=== PATIENT | female | born 1990 | race Caucasian/White ===

== ENCOUNTER 2017-12-17 14:58 | Outpatient (CLI) | payer MEDICAID ==
[~2017-12-17] VITALS: Ht 160 cm; Wt 85.3 kg
[2017-12-17 15:00] VITALS: BP 102/56
[2017-12-17] MEDS ORDERED: PREN1TAB86 PO (15:11)
[2017-12-17] MEDS ORDERED: CALC500T3 PO (15:14)
[2017-12-17] MEDS ORDERED: D5 LR IV SOLUTION 1,000 ML IV ONE ×2 (15:29→15:30)
[2017-12-17 15:38] VITALS: BP 104/56
[2017-12-17 16:25] LABS: BASOPHILS % (AUTO) 0 % (0-10); EOSINOPHILS # (AUTO) 0.2 10^3/uL (0.0-0.3); EOSINOPHILS % (AUTO) 2 % (0-10); HEMATOCRIT 33 % (35-52); HEMOGLOBIN 11.2 G/DL (11.5-16.0); LYMPHOCYTES # (AUTO) 2.4 X 10^3 (1.0-4.0); LYMPHOCYTES % (AUTO) 25 % (12-44); MEAN CORPUSCULAR HEMOGLOBIN 30 PG (25-34); MEAN CORPUSCULAR HGB CONC 34 G/DL (32-36); MEAN CORPUSCULAR VOLUME 88 FL (80-99); MONOCYTES # (AUTO) 0.7 X 10^3 (0.0-1.0); MONOCYTES % (AUTO) 7 % (0-12); NEUTROPHILS # (AUTO) 6.5 X 10^3 (1.8-7.8); NEUTROPHILS % (AUTO) 66 % (42-75); PLATELET COUNT 352 10^3/uL (130-400); RED BLOOD COUNT 3.72 10^6/uL (4.35-5.85); RED CELL DISTRIBUTION WIDTH 14.6 % (10.0-14.5); WHITE BLOOD COUNT 9.7 10^3/uL (4.3-11.0)
[2017-12-17 16:45] LABS: ALANINE AMINOTRANSFERASE 13 U/L (0-55); ALBUMIN 3.5 GM/DL (3.2-4.5); ALKALINE PHOSPHATASE 74 U/L (40-136); BILIRUBIN,TOTAL 0.2 MG/DL (0.1-1.0); BUN/CREATININE RATIO 12; CALCIUM 9.2 MG/DL (8.5-10.1); CARBON DIOXIDE 27 MMOL/L (21-32); CHLORIDE 106 MMOL/L (98-107); CREATININE SERUM 0.51 MG/DL (0.60-1.30); GFR ESTIMATED > 60; GLUCOSE 77 MG/DL (70-105); POTASSIUM 3.6 MMOL/L (3.6-5.0); SODIUM 137 MMOL/L (135-145); TOTAL PROTEIN 6.3 GM/DL (6.4-8.2)
[2017-12-17] MEDS ORDERED: CITRIC ACID/SOB CIT (BICITRA) 30 ML UDC PO ONE (17:15)
[2017-12-17 17:25] VITALS: BP 104/56
--- NOTE | 2017-12-18 12:24 | Physician Query-Final Dx ---
ELISE LOPEZ 12/18/17 1224: Clinic Account Progress/Dx Physician Query: Please give diagnosis Date of Service Dec 17, 2017 at 14:58 TRINIDAD WRIGHT MD 12/19/17 0712: Clinic Account Progress/Dx DIAGNOSIS: Diagnosis Hyperemesis ELISE LOPEZ Dec 18, 2017 12:24 TRINIDAD WRIGHT MD Dec 19, 2017 07:12
== END 2017-12-17 17:25 | disposition home or self-care (01) ==
LOC: WSo 14:58 → LDRP 14:59 → WSo 17:25
PROVIDERS: ATTEND Obstetrics & Gynecology
DX: O21.2 Late vomiting of pregnancy (principal); Z3A.26 26 weeks gestation of pregnancy
CPT/HCPCS: 36415; 80053; 85025; 96360; 99213

== ENCOUNTER 2018-01-15 10:56 | Outpatient (CLI) | payer MEDICAID ==
[~2018-01-15] VITALS: Ht 160 cm; Wt 84.8 kg
[~2018-01-15 10:56] MED LIST: CALC500T3 PO; PREN1TAB86 PO
[2018-01-15 11:02] VITALS: BP 102/50
[2018-01-15] MEDS ORDERED: D5 LR IV SOLUTION 1,000 ML IV ONE (11:24)
[2018-01-15] MEDS ORDERED: LOPERAMIDE 2 MG (IMODIUM) CAP PO PRN (11:30)
[2018-01-15] MEDS ORDERED: ONDANSETRON 4 MG/2 ML (SDV) Z0FRAN IVP ONE (11:30)
[2018-01-15 11:32] LABS: BILIRUBIN,URINE NEGATIVE (NEGATIVE); CLARITY,URINE CLEAR; COLOR,URINE YELLOW; GLUCOSE, URINE (UA) NEGATIVE (NEGATIVE); KETONES,URINE NEGATIVE (NEGATIVE); LEUKOCYTE ESTERASE ,URINE 1+ (NEGATIVE); NITRITE,URINE NEGATIVE (NEGATIVE); PH,URINE 6 (5-9); PROTEIN,URINE 1+ (NEGATIVE); UROBILINOGEN,URINE NORMAL (NORMAL)
[2018-01-15 11:38] LABS: BACTERIA,URINE TRACE /HPF
[2018-01-15] MEDS: D5 LR IV SOLUTION 1,000 ML IV SCH ×2 (11:41→13:40)
[2018-01-15 12:01] LABS: BASOPHILS % (AUTO) 0 % (0-10); EOSINOPHILS # (AUTO) 0.2 10^3/uL (0.0-0.3); EOSINOPHILS % (AUTO) 2 % (0-10); HEMATOCRIT 32 % (35-52); HEMOGLOBIN 10.8 G/DL (11.5-16.0); LYMPHOCYTES % (AUTO) 19 % (12-44); MEAN CORPUSCULAR HEMOGLOBIN 30 PG (25-34); MEAN CORPUSCULAR HGB CONC 34 G/DL (32-36); MEAN CORPUSCULAR VOLUME 88 FL (80-99); MEAN PLATELET VOLUME 9.2 FL (7.4-10.4); MONOCYTES # (AUTO) 0.6 X 10^3 (0.0-1.0); MONOCYTES % (AUTO) 6 % (0-12); NEUTROPHILS # (AUTO) 7.5 X 10^3 (1.8-7.8); NEUTROPHILS % (AUTO) 73 % (42-75); PLATELET COUNT 312 10^3/uL (130-400); RED BLOOD COUNT 3.65 10^6/uL (4.35-5.85); RED CELL DISTRIBUTION WIDTH 13.9 % (10.0-14.5); WHITE BLOOD COUNT 10.3 10^3/uL (4.3-11.0)
[2018-01-15 12:16] LABS: ALANINE AMINOTRANSFERASE 8 U/L (0-55); ALBUMIN 3.3 GM/DL (3.2-4.5); ALKALINE PHOSPHATASE 93 U/L (40-136); BILIRUBIN,TOTAL 0.3 MG/DL (0.1-1.0); BUN/CREATININE RATIO 15; CALCIUM 8.6 MG/DL (8.5-10.1); CARBON DIOXIDE 21 MMOL/L (21-32); CHLORIDE 107 MMOL/L (98-107); CREATININE SERUM 0.52 MG/DL (0.60-1.30); GFR ESTIMATED > 60; GLUCOSE 93 MG/DL (70-105); POTASSIUM 3.8 MMOL/L (3.6-5.0); SODIUM 137 MMOL/L (135-145); TOTAL PROTEIN 5.9 GM/DL (6.4-8.2)
[2018-01-15] MEDS ORDERED: FAMO10TA43 PO (12:51)
[2018-01-15 15:15] VITALS: BP 102/50
--- NOTE | 2018-01-16 11:36 | Physician Query-Final Dx ---
ELISE LOPEZ 01/16/18 1136: Clinic Account Progress/Dx Physician Query: Please give diagnosis Date of Service January 15, 2018 at 10:56 TRINIDAD WRIGHT MD 01/20/18 1314: Clinic Account Progress/Dx DIAGNOSIS: Diagnosis false labor ELISE LOPEZ January 16, 2018 11:36 TRINIDAD WRIGHT MD January 20, 2018 13:14
== END 2018-01-15 15:15 | disposition home or self-care (01) ==
LOC: WSo 10:56 → LDRP 10:57 → WSo 15:15
PROVIDERS: ATTEND Obstetrics & Gynecology
DX: O47.03 False labor before 37 completed weeks of gestation, third trimester (principal); Z3A.30 30 weeks gestation of pregnancy
CPT/HCPCS: 36415; 80053; 81000; 82570; 84156; 85025; 87088; 96361; 96374; 99214

== ENCOUNTER 2019-08-25 21:54 | Emergency (ER) | payer SELFPAY ==
[~2019-08-25] VITALS: Ht 157.4 cm; Wt 70.4 kg
[~2019-08-25 21:54] MED LIST changes: -CALC500T3 PO; +CALC500T64 PO; +DOCU-143 PO; +FAMO10TA43 PO; +IBUP-1780 PO; +OXYC1TAB87 PO
[2019-08-26 00:03] LABS: BILIRUBIN,URINE NEGATIVE (NEGATIVE); CLARITY,URINE CLEAR; COLOR,URINE YELLOW; GLUCOSE, URINE (UA) NEGATIVE (NEGATIVE); KETONES,URINE NEGATIVE (NEGATIVE); LEUKOCYTE ESTERASE ,URINE NEGATIVE (NEGATIVE); NITRITE,URINE NEGATIVE (NEGATIVE); PH,URINE 5.5 (5-9); PROTEIN,URINE NEGATIVE (NEGATIVE)
[2019-08-26 00:10] LABS: BACTERIA,URINE TRACE /HPF; RBC,URINE 25-50 /HPF; WBC,URINE RARE /HPF
[2019-08-26] MEDS ORDERED: NS IV 1000 ML 1,000 ML IV ONE (00:34)
--- NOTE | 2019-08-26 00:56 | ED Abdominal Pain ---
General Chief Complaint: Abdominal/GI Problems Stated Complaint: ABD PAIN Nursing Triage Note: PT AMB TO TRIAGE WITH COMPLAINT OF UPPER ABD CRAMPS FOR 3 DAYS. STATES PAIN IS RADIATING TOWARDS HER LEFT SHOULDER. PT STATES SHE FEELS SHE COULD PASS OUT Sepsis Screen: No Definite Risk Source of Information: Patient Exam Limitations: No Limitations (JOSE RAUL TERAN MED STUDENT) History of Present Illness Date Seen by Provider: Aug 26, 2019 Time Seen by Provider: 00:37 Initial Comments Pt complains of three days of epigastric abdominal pain that is crampy 7/10 baseline and burning 10/10 intermittently. She has never experienced this pain before, it does not radiate, and she associates it with nausea, a few episodes of diarrhea, chills and weakness. She has tried tylenol, ibuprofen and prilosec with no improvement of symptoms. She had a burger for dinner and thinks it made her pain worse. She has previously been taking prilosec for heartburn with good relief. Timing/Duration: 3-4 Days Severity/Quality: Severe, Burning, Cramping Location: Epigastric Radiation: No Radiation Activities at Onset: None Modifying Factors: Worsens With Eating, Worsens With Movement, Worsens With Palpation Associated Symptoms: No Back Pain, No Chest Pain; Diaphoresis, Fever/Chills, Fatigue; No Headache; Nausea/Vomiting; No Rash (JOSE RAUL TERAN,MED STUDENT) Initial Comments Here with intermittent and worsening epigastric abdominal pain that is cramping and burning. Does have history of reflux and is concerned that maybe an ulcer. Medicines as above and that is not helping. Timing/Duration: 3-4 Days Severity/Quality: Severe, Burning, Cramping Location: Epigastric Radiation: No Radiation Activities at Onset: None (MATHEW HILL MD) Allergies and Home Medications Allergies Coded Allergies: codeine (Verified Allergy, Intermediate, NAUSEA, 12/17/17) makes pt vomit Home Medications Docusate Sodium 100 Mg Capsule, 100 MG PO BID Prescribed by: TRINIDAD ZIMMERMAN on 03/03/182139 Famotidine 10 Mg Tablet, 10 MG PO BID, (Reported) Ibuprofen 800 Mg Tablet, 800 MG PO Q6H PRN for PAIN Prescribed by: TRINIDAD ZIMMERMAN on 03/03/182139 Oxycodone HCl/Acetaminophen 1 Each Tablet, 1-2 EACH PO Q4H Prescribed by: TRINIDAD ZIMMERMAN on 03/03/180 Vit W-Ca,Fe,FA(<1 mg) 1 Each Tablet, 1 EACH PO DAILY, (Reported) Patient Home Medication List Home Medication List Reviewed: Yes (JOSE RAUL TERAN MED STUDENT) Home Medication List Reviewed: Yes (MATHEW HILL MD) Review of Systems Review of Systems Constitutional: chills; No diaphoresis, No fever; weakness EENTM: No Eye Pain, No Ear Pain, No Mouth Pain, No Nose Pain, No Throat Pain Respiratory: Denies Cough, Denies Shortness of Air Cardiovascular: Denies Chest Pain, Denies Palpitations Gastrointestinal: See HPI, Abdominal Pain, Diarrhea, Nausea Genitourinary: Denies Frequency, Denies Incontinence, Denies Pain Musculoskeletal: No back pain, No joint pain Skin: No lesions, No lumps, No rash Psychiatric/Neurological: Denies Anxiety, Denies Depressed Endocrine: Denies Intolerance to Cold, Denies Intolerance to Heat Hematologic/Lymphatic: Denies Blood Clots, Denies Easy Bruising (JOSE RAUL TERAN MED STUDENT) All Other Systems Reviewed Negative Unless Noted: Yes (MATHEW HILL MD) Past Rhorzgq-Veigit-Nndlsq Hx Past Med/Social Hx: Reviewed Nursing Past Med/Soc Hx (MATHEW HILL MD) Patient Social History Alcohol Use: Denies Use Recreational Drug Use: No Smoking Status: Former Smoker Type Used: Cigarettes Former Smoker, Quit: Dec 01, 2017 Recent Foreign Travel: No Contact w/Someone Who Travel: No Recent Infectious Disease Expo: No Recent Hopitalizations: No (JOSE RAUL TERAN MED STUDENT) Alcohol Use: Denies Use Recreational Drug Use: No Smoking Status: Former Smoker (MATHEW HILL MD) Immunizations Up To Date PED Vaccines UTD: Yes (JOSE RAUL TERAN MED STUDENT) Seasonal Allergies Seasonal Allergies: Yes (JOSE RAUL TERAN MED STUDENT) Past Medical History Surgeries: Yes Respiratory: No Cardiac: No Neurological: No Female Reproductive Disorders: Denies Sexually Transmitted Disease: No HIV/AIDS: No Genitourinary: No Gastrointestinal: No Musculoskeletal: No Endocrine: No HEENT: No Cancer: No Psychosocial: No Integumentary: No Blood Disorders: No Adverse Reaction/Blood Tranf: No (JOSE RAUL TERAN,MATTHEW STUDENT) Family Medical History Reviewed Nursing Family Hx (MATHEW HILL MD) Abdominal aortic aneurysm 19 FATHER Arthritis G8 BROTHER Hypercholesterolemia 19 FATHER AAA (JOSE RAUL TERAN,MATTHEW STUDENT) Physical Exam Vital Signs Vital Signs - First Documented 08/25/19 22:33 Temp 36.8 Pulse 75 Resp 20 B/P (MAP) 122/83 (96) Pulse Ox 100 O2 Delivery Room Air (MATHEW HILL MD) Vital Signs Capillary Refill : Less Than 3 Seconds (JOSE RAUL TERAN,MATTHEW STUDENT) Height/Weight/BMI Height: 5'3.00" Weight: 192lbs. 0.6oz. 87.080003fw; 28.00 BMI Method: General Appearance: WD/WN, mild distress HEENT: PERRL/EOMI, normal ENT inspection, TMs normal, pharynx normal Neck: non-tender, supple Respiratory: chest non-tender, lungs clear, normal breath sounds, no respiratory distress, no accessory muscle use Cardiovascular: regular rate, rhythm, no edema, no gallop, no murmur Gastrointestinal: soft; No distended, No guarding, No rebound; tenderness (epigastric ) Extremities: no pedal edema, no calf tenderness, normal capillary refill Back: normal inspection, no CVA tenderness, no vertebral tenderness Neurologic/Psychiatric: alert, normal mood/affect, oriented x 3 Skin: normal color, warm/dry Lymphatic: no adenopathy (anterior/posterior cervical, supra/infraclavicular ) (JOSE RAUL TERAN,MED STUDENT) General Appearance: WD/WN, mild distress HEENT: PERRL/EOMI, pharynx normal Neck: non-tender, full range of motion, supple Respiratory: lungs clear, normal breath sounds Cardiovascular: regular rate, rhythm, no murmur Gastrointestinal: soft; No guarding, No rebound; tenderness (epigastric ) Extremities: non-tender, normal inspection, no pedal edema Back: normal inspection, no CVA tenderness, no vertebral tenderness Neurologic/Psychiatric: alert, oriented x 3 Skin: normal color, warm/dry (MATHEW HILL MD) Progress/Results/Core Measures Results/Orders Lab Results Laboratory Tests Test 08/25/19 23:50 08/26/19 00:48 Range/Units Urine Color YELLOW Urine Clarity CLEAR Urine pH 5.5 5-9 Urine Specific Watts >=1.030 1.016-1.022 Urine Protein NEGATIVE NEGATIVE Urine Glucose (UA) NEGATIVE NEGATIVE Urine Ketones NEGATIVE NEGATIVE Urine Nitrite NEGATIVE NEGATIVE Urine Bilirubin NEGATIVE NEGATIVE Urine Urobilinogen 0.2 < = 1.0 MG/DL Urine Leukocyte Esterase NEGATIVE NEGATIVE Urine RBC (Auto) 3+ H NEGATIVE Urine RBC 25-50 H /HPF Urine WBC RARE /HPF Urine Squamous Epithelial Cells 10-25 H /HPF Urine Crystals NONE /LPF Urine Bacteria TRACE /HPF Urine Casts NONE /LPF Urine Mucus LARGE H /LPF Urine Culture Indicated NO Urine Test NEGATIVE NEGATIVE White Blood Count 9.5 4.3-11.0 10^3/uL Red Blood Count 4.74 4.35-5.85 10^6/uL Hemoglobin 12.1 11.5-16.0 G/DL Hematocrit 37 35-52 % Mean Corpuscular Volume 79 L 80-99 FL Mean Corpuscular Hemoglobin 26 25-34 PG Mean Corpuscular Hemoglobin Concent 32 32-36 G/DL Red Cell Distribution Width 13.1 10.0-14.5 % Platelet Count 472 H 130-400 10^3/uL Mean Platelet Volume 9.8 7.4-10.4 FL Neutrophils (%) (Auto) 69 42-75 % Lymphocytes (%) (Auto) 23 12-44 % Monocytes (%) (Auto) 6 0-12 % Eosinophils (%) (Auto) 2 0-10 % Basophils (%) (Auto) 0 0-10 % Neutrophils # (Auto) 6.6 1.8-7.8 X 10^3 Lymphocytes # (Auto) 2.2 1.0-4.0 X 10^3 Monocytes # (Auto) 0.5 0.0-1.0 X 10^3 Eosinophils # (Auto) 0.2 0.0-0.3 10^3/uL Basophils # (Auto) 0.0 0.0-0.1 10^3/uL Sodium Level 139 135-145 MMOL/L Potassium Level 4.8 3.6-5.0 MMOL/L Chloride Level 107 98-107 MMOL/L Carbon Dioxide Level 18 L 21-32 MMOL/L Anion Gap 14 5-14 MMOL/L Blood Urea Nitrogen 13 7-18 MG/DL Creatinine 0.74 0.60-1.30 MG/DL Estimat Glomerular Filtration Rate > 60 BUN/Creatinine Ratio 18 Glucose Level 109 H 70-105 MG/DL Calcium Level 9.5 8.5-10.1 MG/DL Corrected Calcium 8.5-10.1 MG/DL Magnesium Level 2.0 1.6-2.4 MG/DL Total Bilirubin 0.2 0.1-1.0 MG/DL Aspartate Amino Transf (AST/SGOT) 27 5-34 U/L Alanine Aminotransferase (ALT/SGPT) 13 0-55 U/L Alkaline Phosphatase 81 40-136 U/L Total Protein 8.0 6.4-8.2 GM/DL Albumin 4.6 H 3.2-4.5 GM/DL Lipase 20 8-78 U/L (MATHEW HILL MD) My Orders Orders - MATHEW HILL MD Ua Culture If Indicated (08/25/19 23:57) Cbc With Automated Diff (08/26/19 00:34) Comprehensive Metabolic Panel (08/26/19 00:34) Hcg,Qualitative Urine (08/26/19 00:34) Lipase (08/26/19 00:34) Magnesium (08/26/19 00:34) Ed Iv/Invasive Line Start (08/26/19 00:34) Ns Iv 1000 Ml (Sodium Chloride 0.9%) (08/26/19 00:34) Lidocaine 2% Viscous 15 Ml (Xylocaine Vi (08/26/19 01:00) Antacid Suspension (Mylanta Suspension (08/26/19 01:00) Famotidine Injection (Pepcid Injection) (08/26/19 01:00) Ondansetron Injection (Zofran Injectio (08/26/19 01:15) Ketorolac Injection (Toradol Injection) (08/26/19 01:14) Sucralfate Tablet (Carafate Tablet) (08/26/19 02:26) Fentanyl Injection (Sublimaze Injection (08/26/19 02:36) Pantoprazole Injection (Protonix Injecti (08/26/19 04:10) (MATHEW HILL MD) Medications Given in ED Current Medications Medications Dose Ordered Sig/Kiley Route Start Time Stop Time Status Last Admin Dose Admin Al Hydrox/Mg Hydrox/Simethicone 30 ml ONCE ONCE PO 08/26/19 01:00 08/26/19 01:02 DC 08/26/19 01:09 30 ML Lidocaine HCl 15 ml ONCE ONCE PO 08/26/19 01:00 08/26/19 01:02 DC 08/26/19 01:08 15 ML Ondansetron HCl 4 mg ONCE ONCE IVP 08/26/19 01:15 08/26/19 01:16 DC 08/26/19 01:20 4 MG Sodium Chloride 1,000 ml @ 0 mls/hr Q0M ONCE IV 08/26/19 00:34 08/26/19 00:36 DC 08/26/19 00:47 999 MLS/HR (MATHEW HILL MD) Vital Signs/I&O 08/25/19 22:33 Temp 36.8 Pulse 75 Resp 20 B/P (MAP) 122/83 (96) Pulse Ox 100 O2 Delivery Room Air (MATHEW HILL MD) Blood Pressure Mean: 96 Progress Progress Note : Time: 00:58 Progress Note Seen and evaluated. Ordered CBC, CMP with lipase and UA. Administering GI cocktail, 20mg pepcid and 1L fluids. (JOSE RAUL TERAN,MED STUDENT) Progress Note : Progress Note Seen and evaluated the patient and agree with above except as indicated. I have directed the plan of care. IV, labs, UA, LR 1 L bolus, GI cocktail and Pepcid 20 mg IV ordered. Monitor patient. 0405: Patient did receive fentanyl 50 micrograms IV and did have CT abdomen and pelvis performed. She also had Protonix 40 mg IV given. Overall she improved throughout the stay. There is question of hiatal hernia on CT I do believe all of this symptoms are related to reflux and/or increased stomach acid or early ulcer. This was discussed with the patient. She will initiate omeprazole twice a day for the next 7 days and then daily ther eafter with augmentation with famotidine. She has been instructed to follow-up with the surgeon and states that she will comply. Discharged home with return precautions. Patient verbalize understanding of instructions and agreement with plan. (MATHEW HILL MD) Diagnostic Imaging Diagonstic Imaging: CT Plain Films/CT/US/NM/MRI: abdomen, pelvis Comments No acute findings. Significant fecal debris in the large bowel. Possible small hiatal hernia. Reviewed: Reviewed Night Hawk Study, Reviewed by Me (MATHEW HILL MD) Departure Impression Primary Impression: Epigastric abdominal pain Disposition: HOME, SELF-CARE Condition: Improved Departure-Patient Inst. Decision time for Depature: 05:10 (MATHEW HILL MD) Referrals: ARTEM DA SILVA DO NO,LOCAL PHYSICIAN (PCP) Primary Care Physician Patient Instructions: Acute Abdomen (Belly Pain), Adult (DC) Add. Discharge Instructions: All discharge instructions reviewed with patient and/or family. Voiced understanding. Increase omeprazole to 20 mg twice daily for 7 days and then return to daily dosing. You may also take famotidine 20 mg daily. Converse diet. Follow-up with Dr. Da Silva. Return for worse pain, weakness, vomiting or other concerns as needed. Copy Copies To 1: ARTEM DA SILVA DREW,MED STUDENT Aug 26, 2019 00:56 MATHEW HILL MD Aug 26, 2019 05:37
[2019-08-26 00:59] LABS: BASOPHILS % (AUTO) 0 % (0-10); EOSINOPHILS # (AUTO) 0.2 10^3/uL (0.0-0.3); EOSINOPHILS % (AUTO) 2 % (0-10); HEMATOCRIT 37 % (35-52); HEMOGLOBIN 12.1 G/DL (11.5-16.0); LYMPHOCYTES # (AUTO) 2.2 X 10^3 (1.0-4.0); LYMPHOCYTES % (AUTO) 23 % (12-44); MEAN CORPUSCULAR HEMOGLOBIN 26 PG (25-34); MEAN CORPUSCULAR HGB CONC 32 G/DL (32-36); MEAN CORPUSCULAR VOLUME 79 FL (80-99); MEAN PLATELET VOLUME 9.8 FL (7.4-10.4); MONOCYTES # (AUTO) 0.5 X 10^3 (0.0-1.0); MONOCYTES % (AUTO) 6 % (0-12); NEUTROPHILS # (AUTO) 6.6 X 10^3 (1.8-7.8); NEUTROPHILS % (AUTO) 69 % (42-75); PLATELET COUNT 472 10^3/uL (130-400); RED CELL DISTRIBUTION WIDTH 13.1 % (10.0-14.5); WHITE BLOOD COUNT 9.5 10^3/uL (4.3-11.0)
[2019-08-26] MEDS ORDERED: FAMOTIDINE 20MG/2ML IV (PEPCID) IV STA (01:00)
[2019-08-26] MEDS ORDERED: ANTACID SUSP 30 ML UDC (MYLANTA) PO ONE (01:00)
[2019-08-26] MEDS ORDERED: LIDOCAINE 2% VISCOUS 15 ML UDC PO ONE (01:00)
[2019-08-26] MEDS ORDERED: KETOROLAC 30 MG/ML VIAL IVP STA (01:14)
[2019-08-26] MEDS ORDERED: ONDANSETRON 4 MG/2 ML (SDV) Z0FRAN IVP ONE (01:15)
[2019-08-26 01:20] LABS: ALANINE AMINOTRANSFERASE 13 U/L (0-55); ALBUMIN 4.6 GM/DL (3.2-4.5); ALKALINE PHOSPHATASE 81 U/L (40-136); BILIRUBIN,TOTAL 0.2 MG/DL (0.1-1.0); BUN/CREATININE RATIO 18; CALCIUM 9.5 MG/DL (8.5-10.1); CARBON DIOXIDE 18 MMOL/L (21-32); CHLORIDE 107 MMOL/L (98-107); CREATININE SERUM 0.74 MG/DL (0.60-1.30); GFR ESTIMATED > 60; GLUCOSE 109 MG/DL (70-105); LIPASE 20 U/L (8-78); POTASSIUM 4.8 MMOL/L (3.6-5.0); SODIUM 139 MMOL/L (135-145)
[2019-08-26] MEDS ORDERED: SUCRALFATE 1 GM (CARAFATE) TAB ONE (02:26)
[2019-08-26] MEDS ORDERED: fentaNYL INJECTION 100 MCG/2 ML AMP ONE (02:36)
[2019-08-26] MEDS ORDERED: PANTOPRAZOLE 40 MG (PROTONIX) VIAL ONE (04:10)
[2019-08-26 04:46] VITALS: BP 120/81
[2019-08-26] MEDS ORDERED: IOHEXOL 350 MG/ML 100 ML (OMNIPAQUE 350) VIAL IV ONE (06:15)
[2019-08-26] MEDS ORDERED: HOLD METFORMIN - RECEIVED CONTRAST 20 ML VIAL IV SCH (06:15)
[2019-08-26] MEDS ORDERED: NS 100 ML (IVPB) BAG IV ONE (06:15)
--- NOTE | 2019-08-26 07:24 | Diagnostic Imaging Report ---
PROCEDURE: CT abdomen and pelvis with contrast. TECHNIQUE: Multiple contiguous axial images were obtained through the abdomen and pelvis after administration of intravenous contrast. Auto Exposure Controls were utilized during the CT exam to meet ALARA standards for radiation dose reduction. INDICATION: Epigastric pain. FINDINGS: The liver, gallbladder and bile ducts appear normal. The spleen, adrenals and pancreas unremarkable. The kidneys appeared normal. There is no appendicitis or diverticulitis. The uterus, adnexa and urinary bladder unremarkable. There is no bowel, biliary or urinary tract obstruction. No ascites, abscess, hematoma or acute fluid collection. No pneumatosis or free gas. There was no focal inflammatory process. The abdominal wall appeared intact. The lung bases in the osseous structures nonacute. IMPRESSION: Unremarkable abdominal pelvic CT. Dictated by: Dictated on workstation # [id number]
== END 2019-08-26 04:49 | disposition home or self-care (01) ==
LOC: EDUNIT# 21:54 → ER 21:55
DX: R10.13 Epigastric pain (principal); Z88.5 Allergy status to narcotic agent; Z87.891 Personal history of nicotine dependence
CPT/HCPCS: 36415; 74177; 80053; 81000; 83690; 83735; 84703; 85025; 96361; 96374; 96375

== ENCOUNTER → 2020-04-06 | Outpatient (CLI) | payer MEDICAID ==
[~2020-04-06] MED LIST changes: +DULO60CA6 PO; +LAMO25TA4 PO; +OMEP20TA33 PO
--- NOTE | 2020-04-06 09:06 | Diagnostic Imaging Report ---
PROCEDURE: US Gallbladder. TECHNIQUE: Multiple real-time grayscale images were obtained over the right upper quadrant in various projections. INDICATION: Abdominal pain There are no prior ultrasound examinations available for comparison. The CT abdomen/pelvis exam of 01/24/2019 failed to show any abnormality of the gallbladder. On this study, there is no evidence for cholelithiasis or acute cholecystitis. The common bile duct is not dilated. The liver does not appear to be enlarged. There is no focal mass involving the liver and the biliary tree is not abnormally distended. Spectral and color-flow imaging of the portal vein shows the vein is patent. The pancreas, the aorta and inferior vena cava and right kidney are within normal limits. There is no mass or free fluid collection evident. IMPRESSION: 1. There is no acute abnormality of the right upper quadrant. In particular, there is no sign of cholelithiasis or acute cholecystitis. 2. If clinical concern regarding an underlying abnormality of the gallbladder persists, then nuclear medicine hepatobiliary scan would be recommended. Dictated by: Dictated on workstation # [id number]
== END ==
LOC: RAD 06:49
PROVIDERS: ATTEND Surgery
DX: R10.13 Epigastric pain (principal)
CPT/HCPCS: 76705

== ENCOUNTER 2020-04-07 05:33 | Outpatient (RCR) | payer MEDICAID ==
[~2020-04-07] VITALS: Ht 160 cm; Wt 69.0 kg
== END 2020-04-07 10:04 | disposition home or self-care (01) ==
LOC: PREOP 05:33
PROVIDERS: ATTEND Surgery
DX: Z01.812 Encounter for preprocedural laboratory examination (principal); R10.13 Epigastric pain; Z20.828 Contact with and (suspected) exposure to other viral communicable diseases
CPT/HCPCS: 87635

== ENCOUNTER 2020-04-12 10:21 | Day surgery (SDC) | payer MEDICAID ==
[~2020-04-12] VITALS: Ht 169 cm; Wt 69.0 kg
[2020-04-12 10:25] VITALS: BP 103/74
[2020-04-12] MEDS ORDERED: LACTATED RINGERS 1,000 ML IV ONE (10:29)
[2020-04-12] MEDS ORDERED: LACTATED RINGERS 1,000 ML IV STA (10:31)
[2020-04-12] MEDS ORDERED: HURRICAINE EXT TUBE (BENZOCAINE) XX PRN (10:45)
[2020-04-12] MEDS ORDERED: proPOfol 200 MG/20 ML (DIPRIVAN) VIAL IV ONE ×2 (10:45→11:00)
[2020-04-12] MEDS ORDERED: MIDAZOLAM 2 MG/2 ML (VERSED) VIAL ONE (10:45)
--- NOTE | 2020-04-12 10:58 | Progress Note-Pre Operative ---
Pre-Operative Progress Note H&P Reviewed The H&P was reviewed, patient examined and no changes noted. Date Seen by Provider: Apr 12, 2020 Time Seen by Provider: 10:58 Date H&P Reviewed: Apr 12, 2020 Time H&P Reviewed: 10:58 Pre-Operative Diagnosis: epigastric abd pain, gerd, n/v ARTEM DA SILVA DO Apr 12, 2020 10:58
[2020-04-12 11:10] VITALS: BP 91/55
[2020-04-12 11:15] VITALS: BP 94/57
[2020-04-12 11:20] VITALS: BP 97/58
--- NOTE | 2020-04-12 11:20 | Progress Note-Post Operative ---
Post-Operative Progess Note Surgeon (s)/Green Belt (s) Surgeon ARTEM DA SILVA DO Green Belt: na Pre-Operative Diagnosis epigastric abd pain, gerd, n/v Post-Operative Diagnosis reflux esophagitis Procedure & Operative Findings Date of Procedure 04/12/20 Procedure Performed/Findings egd c biopsies Anesthesia Type per [facility] Estimated Blood Loss Estimated blood loss (mL): na Specimens/Packing Specimens Removed antrum ,ge ARTEM DA SILVA DO Apr 12, 2020 11:20
[2020-04-12] MEDS ORDERED: PANT40TA2 PO (11:21)
--- NOTE | 2020-04-12 11:22 | Discharge Inst-Simple/Standard ---
Discharge Inst-Standard Discharge Medications New, Converted or Re-Newed RX: RX on Chart Patient Instructions/Follow Up Plan of Care/Instructions/FU: 2 weeks Eloy Activity as Tolerated: Yes Discharge Diet: Regular Diet ARTEM DA SILVA DO Apr 12, 2020 11:22
[2020-04-12 11:30] VITALS: BP 102/69
[2020-04-12 11:53] VITALS: BP 102/69
--- OUTSIDE RECORDS SUMMARY | 2020-04-12 12:51 | XMS REPORT ---
Author Author Jaimee Hughes [facility] Address [address] [place], [place] [id number] Care Team Providers Care Tenter Name Role Phone Donna Hughes PCP Allergies and Adverse Reactions Not available. Plan of Treatment Not available. Medications Not available. Problem List Not available. Vital Signs Not available. Social History Not available. History of Procedures Not available. Results Summary Not available. History Of Immunizations Not available. History of Past Illness Name Date of Onset Comments Exposure to COVID-19 virus Mar 18 2020 2:19PM Cough Mar 18 2020 2:19PM Headache Mar 18 2020 2:19PM Payers Insurance Name Company Name Plan Name Plan Number Policy Number [place] Group [facility] [id number] N/A History of Encounters Visit Date Visit Type Provider 03/18/2020 Office visit Donna Hughes NP
--- OUTSIDE RECORDS SUMMARY | 2020-04-12 12:52 | XMS REPORT | Continuity of Care Document ---
Demographics Preferred Language Unknown Marital Status Unknown Sikhism Affiliation Unknown Race Unknown Ethnic Group Unknown Author Organization Unknown Address Unknown Phone Unavailable Allergies Active Description Code Type Severity Reaction Onset Reported/Identified Relationship to Patient Clinical Status Yes CODEINE Drug Allergy N/A N/A Yes NO KNOWN DRUG ALLERGIES UNKNOWN NO KNOWN DRUG ALLERG Yes No Known Allergies [id number] Drug Allergy Unknown N/A 05/31/2016 Yes codeine [id number] Drug Allergy Moderate NAUSEA 04/05/2020 Medications Medication Packaging Start Date St op Date Route Dosage Sig ZOFRAN ORAL 8 ORAL VITAMINS ORAL 09/25/2017 10/02/2017 ORAL daily Hyoscyamine oral disintegrating 0.125mg(Le vsin) MG 07/24/2018 07/24/2018 PRN ONCE ONDANSETRON VIAL INJ 4 MG/2CC (ZOFRAN 2CC VIAL) MG 07/24/2018 07/24/2018 PRN ONCE NORMAL SALINE 1000CC IV BAG INJ 0.9 % (NS 1000CC IV BAG) ml 07/24/2018 07/24/2018 [id number] Problems Date Dx Coded Attending Type Code Diagnosis Diagnosed By 05/31/2016 FRANCA HILL APRN Other H66.91 OTITIS MEDIA, UNSPECIFIED, RIGHT EAR 05/31/2016 FRANCA HILL APRN Other J20.9 ACUTE BRONCHITIS, UNSPECIFIED 05/31/2016 FRANAC HILL APRN Other Z77.22 CNTCT W AND EXPSR TO ENVIRON TOBACCO SMOKE (ACUTE) ( RONIC) 12/17/2017 TRINIDAD WRIGHT MD Ot O21.2 LATE VOMITING OF 12/17/2017 TRINIDAD WRIGHT MD Ot Z3A.26 26 WEEKS GESTATION OF 12/20/2017 TRINIDAD WRIGHT MD Ot O21.2 LATE VOMITING OF 12/20/2017 TRINIDAD WRIGHT MD, Ot Z3A.26 26 WEEKS GESTATION OF 01/01/2018 TRINIDAD WRIGHT MD Ot Z41.8 ENCNTR FOR OTH PROC FOR PURPOSE OTH THAN 01/02/2018 TRINIDAD WRIGHT MD, Ot Z41.8 ENCNTR FOR OTH PROC FOR PURPOSE OTH THAN 01/15/2018 TRINIDAD WRIGHT MD, Ot O47.03 FALSE LABOR BEFORE 37 COMPLETED WEEKS OF 01/15/2018 TRINIDAD WRIGHT MD, Ot Z3A.30 30 WEEKS GESTATION OF 01/21/2018 TRINIDAD WRIGHT MD, Ot O47.03 FALSE LABOR BEFORE 37 COMPLETED WEEKS OF 01/21/2018 TRINIDAD WRIGHT MD, Ot3A.30 30 WEEKS GESTATION OF 03/05/2018 TRINIDAD WRIGHT MD, Ot O69.81X0 LABOR AND DEL COMP BY CORD AROUND NECK, 03/05/2018 TRIINDAD WRIGHT MD, Ot Z23 ENCOUNTER FOR IMMUNIZATION 03/05/2018 TRINIDAD WRIGHT MD, Ot Z37.0 SINGLE LIVE 03/05/2018 TRINIDAD WRIGHT MD, Ot3A.37 37 WEEKS GESTATION OF 07/24/2018 Chance Freitas 647.61 OTHER VIRAL DISEASES COMPLICATING , CHILDBIRTH, OR THE PUERPERIUM, DELIVERED, WITH OR WITHOUT MENTION OF ANTEPARTUM CONDITION 07/24/2018 Chance Freitas 790.8 UNSPECIFIED VIREMIA 07/24/2018 Chance Freitas B34.9 VIRAL INFECTION, UNSPECIFIED 07/24/2018 Chance Freitas O98.511 OTHER VIRAL DISEASES COMPLICATING , FIRST TRIMESTER 08/26/2019 MATHEW HILL MD Ot R10.13 EPIGASTRIC PAIN 08/26/2019 MATHEW HILL MD, Ot Z87.891 PERSONAL HISTORY OF NICOTINE DEPENDENCE 08/26/2019 MATHEW HILL MD, Ot Z88.5 ALLERGY STATUS TO NARCOTIC AGENT STATUS 08/28/2019 MATHEW HILL MD Ot R10.13 EPIGASTRIC PAIN 08/28/2019 MATHEW HILL MD, Ot Z87.891 PERSONAL HISTORY OF NICOTINE DEPENDENCE 08/28/2019 MATHEW HILL MD, Ot Z88.5 ALLERGY STATUS TO NARCOTIC AGENT STATUS 12/06/2019 MATHEW HILL MD Ot R10.13 EPIGASTRIC PAIN 12/06/2019 MATHEW HILL MD, Ot Z87.891 PERSONAL HISTORY OF NICOTINE DEPENDENCE 12/06/2019 MATHEW HILL MD Ot Z88.5 ALLERGY STATUS TO NARCOTIC AGENT STATUS 03/05/2020 MATHEW HILL MD Ot R10.13 EPIGASTRIC PAIN 03/05/2020 MATHEW HILL MD Ot Z87.891 PERSONAL HISTORY OF NICOTINE DEPENDENCE 03/05/2020 MATHEW HILL MD Ot Z88.5 ALLERGY STATUS TO NARCOTIC AGENT STATUS [facility]/07[facility] Z01.812 ENCOUNTER FOR PREPROCEDURAL LABORATORY E 04/07/2020 [facility] Z20.828 CONTACT W AND EXPOSURE TO OTH VIRAL COMM 04/08/2020 [facility] R10. 13 EPIGASTRIC PAIN 04/12/2020 [facility] R10. 13 EP[facility]ASTRIC PA[facility] Procedures Code Description Performed By Dylan levy On [id number] EX TRACTION OF POC, LOW FORCEPS, VIA OPEN 03/03/2018 Results Test Result Range Complete blood count (CBC) with automate d white blood cell (WBC) differential - 12/17/17 15:47 Blood leukocytes automated count (number/volume) 9.7 10*3/uL 4.3-11.0 Blood erythrocytes automated count (number/volume) 3.72 10*6/uL 4.35-5.85 Venous blood hemoglobin measurement (mass/volume) 11.2 g/dL 11.5-16.0 Blood hematocrit (volume fraction) 33 % 35-52 Automated erythrocyte mean corpuscular volume 88 [ foz_us] 80-99 Automated erythrocyte mean corpuscular h emoglobin (mass per erythrocyte) 30 pg 25-34 Automated erythrocyte mean corpuscular h emoglobin concentration measurement (mass/volume) 34 g/dL 32-36 Automated erythrocyte distribution width ratio 14. 6 % 10.0- 14.5 Automated blood platelet count (count/volume) 352 10*3/uL 130-400 Automated blood platelet mean volume measurement 9.0 [foz_us] 7.4-10.4 Automated blood neutrophils/100 leukocytes 66 % 42-75 Automated blood lymphocytes/100 leukocytes 25 % 12-44 Blood monocytes/100 leukocytes 7 % 0-12 Automated blood eosinophils/100 leukocytes 2 % 0-10 Automated blood basophils/100 leukocytes 0 % 0-10 Blood neutrophils automated count (number/volume) 6.5 10*3 1.8-7.8 Blood lymphocytes automated count (number/volume) 2.4 10*3 1.0-4.0 Blood monocytes automated count (number/volume) 0. 7 10*3 0.0-1.0 Automated eosinophil count 0.2 10*3/uL 0 .0-0.3 Automated blood basophil count (count/volume) 0.0 10*3/uL 0.0-0.1 Comprehensive metabolic panel - 12/17/17 15:47 Serum or plasma sodium measurement (moles/volume) 137 mmol/L 135-145 Serum or plasma potassium measurement (moles/volume) 3.6 mmol/L 3.6-5.0 Serum or plasma chloride measurement (moles/volume) 106 mmol/L 98-107 Carbon dioxide 27 mmol/L 21-32 Serum or plasma anion gap determination (moles/volume) 4 mmol/L 5-14 Serum or plasma urea nitrogen measurement (mass/volume ) 6 mg/dL 7-18 Serum or plasma creatinine measurement (mass/volume) 0.51 mg/dL 0.60-1.30 Serum or plasma urea nitrogen/creatinine mass ratio 12 NRG Serum or plasma creatinine measurement w ith calculation of estimated glomerular filtration rate > NRG Serum or plasma glucose measurement (mass/volume) 77 mg/dL 70-105 Serum or plasma calcium measurement (mass/volume) 9.2 mg/dL 8.5-10.1 Serum or plasma total bilirubin measurement (mass/volu me) 0.2 mg/dL 0.1-1.0 Serum or plasma alkaline phosphatase adwoa surement (enzymatic activity/volume) 74 U/L 40-136 Serum or plasma aspartate aminotransfera se measurement (enzymatic activity/volume) 17 U/L 5-34 Serum or plasma alanine aminotransferase measurement (enzymatic activity/volume) 13 U/L 0-55 Serum or plasma protein measurement (mass/volume) 6.3 g/dL 6.4-8.2 Serum or plasma albumin measurement (mass/volume) 3.5 g/dL 3.2-4.5 RH IMMUNE GLOBULIN RHOPHYLAC - 01/01/18 17:24 RH IMMUNE GLOBULIN RHOPHYLAC PRSMD TRFSD 01/01/18 1729 NRG [id number] - 01/01/18 17:24 [id number] 300ug NRG Lot number - 01/01/18 17:24 Lot number [id number] NRG cell screen - 01/01/18 17:24 cell screen 08/23/19 NRG Complete urinalysis with reflex to cultu re - 01/15/18 11:15 Urine color determination YELLOW NRG Urine clarity determination CLEAR NR G Urine pH measurement by test strip 6 5-9 Specific gravity of urine by test strip 1.015 1.016-1.022 Urine protein assay by test strip, semi-quantitative 1+ NEGATIVE Urine glucose detection by automated test strip NE GATIVE NEGATIVE Erythrocytes detection in urine sediment by light micr oscopy NEGATIVE NEGATIVE Urine ketones detection by automated test strip NE GATIVE NEGATIVE Urine nitrite detection by test strip NEGATIVE NEGATIVE Urine total bilirubin detection by test strip NEGA TIVE NEGATIVE Urine urobilinogen measurement by automated test strip (mass/volume) NORMAL NORMAL Urine leukocyte esterase detection by dipstick 1+ NEGATIVE Automated urine sediment erythrocyte cou nt by microscopy (number/high power field) NONE NRG Automated urine sediment leukocyte count by microscopy (number/high power field) NONE NRG Bacteria detection in urine sediment by light microsco py TRACE NRG Squamous epithelial cells detection in u rine sediment by light microscopy 2-5 NRG Crystals detection in urine sediment by light microsco py NONE NRG Casts detection in urine sediment by light microscopy NONE NRG Mucus detection in urine sediment by light microscopy SMALL NRG Complete urinalysis with reflex to culture NO NRG Urine protein/creatinine mass ratio - 11:15 Urine protein measurement (mass/volume) 20 mg/dL 6-12 Urine creatinine measurement (mass/volume) 236 mg/ dL 30-125 Urine protein/creatinine mass ratio 0.08 NRG Bacterial urine culture - 01/15/18 11:15 Bacterial urine culture NG NRG Complete blood count (CBC) with automate d white blood cell (WBC) differential - 01/15/18 11:41 Blood leukocytes automated count (number/volume) 10.3 10*3/uL 4.3-11.0 Blood erythrocytes automated count (number/volume) 3.65 10*6/uL 4.35-5.85 Venous blood hemoglobin measurement (mass/volume) 10.8 g/dL 11.5-16.0 Blood hematocrit (volume fraction) 32 % 35-52 Automated erythrocyte mean corpuscular volume 88 [ foz_us] 80-99 Automated erythrocyte mean corpuscular h emoglobin (mass per erythrocyte) 30 pg 25-34 Automated erythrocyte mean corpuscular h emoglobin concentration measurement (mass/volume) 34 g/dL 32-36 Automated erythrocyte distribution width ratio 13. 9 % 10.0- 14.5 Automated blood platelet count (count/volume) 312 10*3/uL 130-400 Automated blood platelet mean volume measurement 9.2 [foz_us] 7.4-10.4 Automated blood neutrophils/100 leukocytes 73 % 42-75 Automated blood lymphocytes/100 leukocytes 19 % 12-44 Blood monocytes/100 leukocytes 6 % 0-12 Automated blood eosinophils/100 leukocytes 2 % 0-10 Automated blood basophils/100 leukocytes 0 % 0-10 Blood neutrophils automated count (number/volume) 7.5 10*3 1.8-7.8 Blood lymphocytes automated count (number/volume) 2.0 10*3 1.0-4.0 Blood monocytes automated count (number/volume) 0. 6 10*3 0.0-1.0 Automated eosinophil count 0.2 10*3/uL 0 .0-0.3 Automated blood basophil count (count/volume) 0.0 10*3/uL 0.0-0.1 Comprehensive metabolic panel - 01/15/18 11:41 Serum or plasma sodium measurement (moles/volume) 137 mmol/L 135-145 Serum or plasma potassium measurement (moles/volume) 3.8 mmol/L 3.6-5.0 Serum or plasma chloride measurement (moles/volume) 107 mmol/L 98-107 Carbon dioxide 21 mmol/L 21-32 Serum or plasma anion gap determination (moles/volume) 9 mmol/L 5-14 Serum or plasma urea nitrogen measurement (mass/volume ) 8 mg/dL 7-18 Serum or plasma creatinine measurement (mass/volume) 0.52 mg/dL 0.60-1.30 Serum or plasma urea nitrogen/creatinine mass ratio 15 NRG Serum or plasma creatinine measurement w ith calculation of estimated glomerular filtration rate > NRG Serum or plasma glucose measurement (mass/volume) 93 mg/dL 70-105 Serum or plasma calcium measurement (mass/volume) 8.6 mg/dL 8.5-10.1 Serum or plasma total bilirubin measurement (mass/volu me) 0.3 mg/dL 0.1-1.0 Serum or plasma alkaline phosphatase adwoa surement (enzymatic activity/volume) 93 U/L 40-136 Serum or plasma aspartate aminotransfera se measurement (enzymatic activity/volume) 15 U/L 5-34 Serum or plasma alanine aminotransferase measurement (enzymatic activity/volume) 8 U/L 0-55 Serum or plasma protein measurement (mass/volume) 5.9 g/dL 6.4-8.2 Serum or plasma albumin measurement (mass/volume) 3.3 g/dL 3.2-4.5 [id number] - 01/15/18 11:41 [id number] SPECIMEN AVAILABLE [facility] Complete blood count (CBC) with automate d white blood cell (WBC) differential - 03/03/18 12:10 Blood leukocytes automated count (number/volume) 8.8 10*3/uL 4.3-11.0 Blood erythrocytes automated count (number/volume) 4.17 10*6/uL 4.35-5.85 Venous blood hemoglobin measurement (mass/volume) 12.3 g/dL 11.5-16.0 Blood hematocrit (volume fraction) 36 % 35-52 Automated erythrocyte mean corpuscular volume 86 [ foz_us] 80-99 Automated erythrocyte mean corpuscular h emoglobin (mass per erythrocyte) 29 pg 25-34 Automated erythrocyte mean corpuscular h emoglobin concentration measurement (mass/volume) 34 g/dL 32-36 Automated erythrocyte distribution width ratio 14. 0 % 10.0- 14.5 Automated blood platelet count (count/volume) 307 10*3/uL 130-400 Automated blood platelet mean volume measurement 9.8 [foz_us] 7.4-10.4 Automated blood neutrophils/100 leukocytes 64 % 42-75 Automated blood lymphocytes/100 leukocytes 27 % 12-44 Blood monocytes/100 leukocytes 8 % 0-12 Automated blood eosinophils/100 leukocytes 2 % 0-10 Automated blood basophils/100 leukocytes 0 % 0-10 Blood neutrophils automated count (number/volume) 5.6 10*3 1.8-7.8 Blood lymphocytes automated count (number/volume) 2.3 10*3 1.0-4.0 Blood monocytes automated count (number/volume) 0. 7 10*3 0.0-1.0 Automated eosinophil count 0.2 10*3/uL 0 .0-0.3 Automated blood basophil count (count/volume) 0.0 10*3/uL 0.0-0.1 Blood type T Indirect antibody screen pa chucho - 03/03/18 12:10 ABO+Rh group ON NRG Transfusion band number [id number] [facility] Blood group antibody screen NEGATIVE NR G RH IMMUNE GLOBULIN RHOPHYLAC - 03/04/18 06:25 RH IMMUNE GLOBULIN RHOPHYLAC PRSMD TRFSD 03/05/18 0928 NRG cell screen - 03/04/18 06:25 SCREEN LOT NUMBER [id number] NRG Transfusion band number [id number] [facility] [id number] 300ug NRG Erythrocytes./1000 erythrocytes 03/28/18 NRG cell screen 08/26/19 NRG cell screen NEGATIVE NEGATIVE Lot number [id number] [facility] Comprehensive Metabolic Panel - 07/24/18 21:00 Albumin 4.5 g/dL 3.6-5.1 ALP 76 U/L 35-130 ALT 12 U/L 6-45 Anion Gap 14 6-14 AST 15 U/L 2-40 BUN 15 mg/dL 5-25 Calcium 9.4 mg/dL 8.3-10.4 Chloride 106 mmol/L 95-114 CO2 21 mEq/L 22-33 Creat 0.69 mg/dL 0.50-1.50 eGFR 101 mL/min/1.73m2 >59 Globulin 3.1 g/dL 2.3-3.5 Glucose 104 mg/dL 70-110 Osmo 286 280-295 Potassium 3.4 mmol/L 3.5-5.3 Sodium 138 mmol/L 134-148 TBil 0.5 mg/dL 0.2-1.2 TP 7.6 g/dL 6.0-8.3 Influenza - 07/24/18 21:00 Influenza NEGATIVE FOR A and B 0.00-0.0 0 Beta HCG - 07/24/18 21:00 Beta HCG 62 mIU/mL 5-25 Urinalysis - 07/24/18 21:44 Icotest Negative Negative Urine Crystals Amorphous material: moderate/HPF Urine Volume Urine Volume Sufficient (10mL) Urine-Appearance Cloudy Clear Urine-Bacteria 2+ Urine-Bilirubin 1+ Negative Urine-Blood Trace-intact Negative Urine-Color Yellow Colorless-Lt. [place] ow Urine-Epithelial Cells 5-10/HPF Urine-Glucose Negative Negative Urine-Ketones 1+ Negative Urine-Leukocytes Negative Negative Urine-Mucus 2+ Urine-Nitrite Negative Negative Urine-Other Urine Saved if Culture Need ed (48hrs from time of collection) Urine-pH 5.5 5-8.5 Urine-Protein 1+ Negative Urine-RBC 0-2/HPF Urine-Specific [place] >=1.030 1.000-1 .030 Urine-WBC 0-3/HPF Urobilinogen 0.2 0.2-1.0 Complete urinalysis with reflex to cultu re - 08/25/19 23:50 Urine color determination YELLOW NRG Urine clarity determination CLEAR NR G Urine pH measurement by test strip 5.5 5-9 Specific gravity of urine by test strip >= 1.016-1.022 Urine protein assay by test strip, semi-quantitative NEGATIVE NEGATIVE Urine glucose detection by automated test strip NE GATIVE NEGATIVE Erythrocytes detection in urine sediment by light micr oscopy 3+ NEGATIVE Urine ketones detection by automated test strip NE GATIVE NEGATIVE Urine nitrite detection by test strip NEGATIVE NEGATIVE Urine total bilirubin detection by test strip NEGA TIVE NEGATIVE Urine urobilinogen measurement by automated test strip (mass/volume) 0.2 mg/dL < = 1.0 Urine leukocyte esterase detection by dipstick NEG ATIVE NEGATIVE Automated urine sediment erythrocyte cou nt by microscopy (number/high power field) [HPF] NRG Automated urine sediment leukocyte count by microscopy (number/high power field) RARE NRG Bacteria detection in urine sediment by light microsco py TRACE NRG Squamous epithelial cells detection in u rine sediment by light microscopy 10-25 NRG Crystals detection in urine sediment by light microsco py NONE NRG Casts detection in urine sediment by light microscopy NONE NRG Mucus detection in urine sediment by light microscopy LARGE NRG Complete urinalysis with reflex to culture NO NRG Urine beta human chorionic gonadotropin (hCG) measurement - 08/25/19 23:50 Urine beta human chorionic gonadotropin (hCG) measurem ent NEGATIVE NEGATIVE Complete blood count (CBC) with automate d white blood cell (WBC) differential - 08/26/19 00:48 Blood leukocytes automated count (number/volume) 9.5 10*3/uL 4.3-11.0 Blood erythrocytes automated count (number/volume) 4.74 10*6/uL 4.35-5.85 Venous blood hemoglobin measurement (mass/volume) 12.1 g/dL 11.5-16.0 Blood hematocrit (volume fraction) 37 % 35-52 Automated erythrocyte mean corpuscular volume 79 [ foz_us] 80-99 Automated erythrocyte mean corpuscular h emoglobin (mass per erythrocyte) 26 pg 25-34 Automated erythrocyte mean corpuscular h emoglobin concentration measurement (mass/volume) 32 g/dL 32-36 Automated erythrocyte distribution width ratio 13. 1 % 10.0- 14.5 Automated blood platelet count (count/volume) 472 10*3/uL 130-400 Automated blood platelet mean volume measurement 9.8 [foz_us] 7.4-10.4 Automated blood neutrophils/100 leukocytes 69 % 42-75 Automated blood lymphocytes/100 leukocytes 23 % 12-44 Blood monocytes/100 leukocytes 6 % 0-12 Automated blood eosinophils/100 leukocytes 2 % 0-10 Automated blood basophils/100 leukocytes 0 % 0-10 Blood neutrophils automated count (number/volume) 6.6 10*3 1.8-7.8 Blood lymphocytes automated count (number/volume) 2.2 10*3 1.0-4.0 Blood monocytes automated count (number/volume) 0. 5 10*3 0.0-1.0 Automated eosinophil count 0.2 10*3/uL 0 .0-0.3 Automated blood basophil count (count/volume) 0.0 10*3/uL 0.0-0.1 Comprehensive metabolic panel - 08/26/19 00:48 Serum or plasma sodium measurement (moles/volume) 139 mmol/L 135-145 Serum or plasma potassium measurement (moles/volume) 4.8 mmol/L 3.6-5.0 Serum or plasma chloride measurement (moles/volume) 107 mmol/L 98-107 Carbon dioxide 18 mmol/L 21-32 Serum or plasma anion gap determination (moles/volume) 14 mmol/L 5-14 Serum or plasma urea nitrogen measurement (mass/volume ) 13 mg/dL 7-18 Serum or plasma creatinine measurement (mass/volume) 0.74 mg/dL 0.60-1.30 Serum or plasma urea nitrogen/creatinine mass ratio 18 NRG Serum or plasma creatinine measurement w ith calculation of estimated glomerular filtration rate > NRG Serum or plasma glucose measurement (mass/volume) 109 mg/dL 70-105 Serum or plasma calcium measurement (mass/volume) 9.5 mg/dL 8.5-10.1 Serum or plasma total bilirubin measurement (mass/volu me) 0.2 mg/dL 0.1-1.0 Serum or plasma alkaline phosphatase adwoa surement (enzymatic activity/volume) 81 U/L 40-136 Serum or plasma aspartate aminotransfera se measurement (enzymatic activity/volume) 27 U/L 5-34 Serum or plasma alanine aminotransferase measurement (enzymatic activity/volume) 13 U/L 0-55 Serum or plasma protein measurement (mass/volume) 8.0 g/dL 6.4-8.2 Serum or plasma albumin measurement (mass/volume) 4.6 g/dL 3.2-4.5 Magnesium - 08/26/19 00:48 Magnesium 2.0 mg/dL 1.6-2.4 Lipase - 08/26/19 00:48 Lipase 20 U/L 8-78 CYTOCHECK COVID- - 03/18/20 13:00 [id number] NOT DETECTED Not Detecte d Coronavirus SARS-CoV-2 SO 2018 - 0 08:10 Coronavirus Ab [Units/volume] in Serum NOT DETECTE D Not Detecte Encounters ACCT No. Visit Date/Time Discharge Status Pt. Type Provider Facility Loc./Unit Complaint [id number] 03/18/2020 22:25:50 Document Registration [id number] 10/21/2017 12:32:13 10/18/2017 10:5 0:45 DIS Unknown [facility] [id number] 03/18/2020 12:10:46 03/18/2020 23:59: 59 CLS Outpatient Donna Hughes [id number] 05/31/2016 14:35:00 016 15:20:00 DIS Emergency RIDFRANCA TROTTER APRN [facility] ER COUGH [id number] 04/12/2020 10:21:00 020 11:55:00 DIS Outpatient ARTEM DA SILVA DO [facility] ENDO CHRONIC ABDOMINAL PAIN [id number] 04/07/2020 05:33:00 020 10:04:00 DIS Outpatient REKHA MALCOLMARTEM [facility] PREOP EGD [id number] 04/06/2020 07:00:00 23:59:59 CLS Outpatient REKHA MALCOLMARTEM [facility] RAD ABD PAIN EPIGASTRIC [id number] 08/25/2019 21:55:00 019 04:49:00 DIS Emergency MATHEW HILL MD [facility] ER ABD PAIN [id number] 03/03/2018 11:25:00 018 16:35:00 DIS Inpatient TRINIDAD WRIGHT MD [facility] LDRP LABOR [id number] 01/15/2018 10:56:00 018 15:15:00 DIS Outpatient TRINIDAD WRIGHT MD [facility] WSo NAUSEA,DIARRHEA ,DIZZINESS [id number] 01/01/2018 17:12:00 018 17:40:00 DIS Outpatient TRINIDAD WRIGHT MD [facility] WSo RH NEGATIVE [id number] 12/17/2017 14:58:00 018 17:25:00 DIS Outpatient TRINIDAD WRIGHT MD [facility] WSo NAUSEA,VOMITING [id number] 02/29/2020 15:15:00 02/29/2020 23:59: 59 CLS [facility] [id number] 07/24/2018 20:45:00 07/24/2018 22:19: 00 DIS Outpatient Chance Freitas [facility] enter ER [id number] 07/24/2018 21:08:20 Document Registration
--- NOTE | 2020-04-12 14:39 | OPERATIVE REPORT ---
DATE OF SERVICE: 04/12/2020 PREOPERATIVE DIAGNOSES: Epigastric abdominal pain, gastroesophageal reflux disease, nausea, and vomiting. POSTOPERATIVE DIAGNOSES: Reflux esophagitis. PROCEDURE: EGD with biopsy. SURGEON: Artem Lyons DO ANESTHESIA: Per MDA. ESTIMATED BLOOD LOSS: None applicable. SPECIMENS: Antrum and GE junction. INDICATIONS: The patient is a 30-year-old female who was recommended EGD for further evaluation of epigastric abdominal pain, gastroesophageal reflux disease, nausea and vomiting. She understands risks and benefits and wishes to proceed. Consent was signed in the chart. DESCRIPTION OF PROCEDURE: The patient was taken to the endoscopy suite, placed in left lateral recumbent position. Timeout was performed. Scope was inserted in mouth, down the esophagus, stomach and into the duodenum without difficulty. No polyps, masses or ulcerations within the duodenum. Scope was then slowly retracted back into the stomach where it was further insufflated. Biopsy of the antrum was obtained. No other pathology noted. Scope was retroflexed noting no other pathology. Scope was returned to its normal position, slowly withdrawn to distal esophagus, which had some slight changes of reflux esophagitis. Biopsy of the GE junction was obtained. Scope was then slowly retracted back until completely removed. The patient tolerated procedure well without any complications. She was taken to recovery room in stable condition. RECOMMENDATIONS: The patient will be started on Protonix 40 mg daily. We will stop her omeprazole. We will see how her symptoms are doing. We will await biopsy results. The patient also to have HIDA scan. Any issues before that be seen at that time. Job ID: [id number] DocumentID: [id number] Dictated Date: 04/12/2020 11:32:03 Orthopaedic Physician Assistant Date: 04/12/2020 14:39:18 Dictated By: ARTEM LYONS DO
--- NOTE | 2020-04-12 15:14 | Anesthesia-General Post-Op ---
MAC Patient Condition Mental Status/LOC: Same as Preop Cardiovascular: Satisfactory Nausea/Vomiting: Absent Respiratory: Satisfactory Pain: Controlled Complications: Absent Post Op Complications Complications None Follow Up Care/Instructions Patient Instructions None needed. Anesthesiology Discharge Order Discharge Order Patient was seen after the procedure and she was doing well, no complaints, stable vital signs, no apparent adverse anesthesia problems. SHELBY BOB DO Apr 12, 2020 15:14
== END 2020-04-12 11:55 | disposition home or self-care (01) ==
LOC: ENDO 10:21
PROVIDERS: ATTEND Surgery
DX: K21.0 Gastro-esophageal reflux disease with esophagitis (principal); F41.9 Anxiety disorder, unspecified; F32.9 Major depressive disorder, single episode, unspecified; K21.9 Gastro-esophageal reflux disease without esophagitis; Z79.899 Other long term (current) drug therapy; Z88.5 Allergy status to narcotic agent; Z87.891 Personal history of nicotine dependence; Z90.710 Acquired absence of both cervix and uterus; Z82.49 Family history of ischemic heart disease and other diseases of the circulatory system
CPT/HCPCS: 84703

== ENCOUNTER → 2020-04-18 | Outpatient (CLI) | payer MEDICAID ==
[~2020-04-18] MED LIST changes: +CATHETER FLUSH 10 ML SYR IV PRN; +PANT40TA2 PO
--- NOTE | 2020-04-18 11:59 | Diagnostic Imaging Report ---
INDICATION: Abdominal pain. Patient was administered 5.4 mCi technetium 99m Choletec intravenously and imaging over the abdomen was performed. At 45 minutes patient ingested 1 can of ensure and gallbladder ejection fraction was calculated. There is homogeneous uptake of activity by the liver. Prompt excretion of activity into the common duct and gallbladder is noted. There is normal passage of activity into the small bowel. Gallbladder ejection fraction is normal at 68%. IMPRESSION: Normal HIDA scan and gallbladder ejection fraction. Dictated by: Dictated on workstation # [id number]
== END ==
LOC: CARD 09:41
PROVIDERS: ATTEND Surgery
DX: K21.9 Gastro-esophageal reflux disease without esophagitis (principal); R11.2 Nausea with vomiting, unspecified; R10.9 Unspecified abdominal pain
CPT/HCPCS: 78227; A9537

== ENCOUNTER 2020-12-08 12:42 | Emergency (ER) | payer MEDICAID ==
[~2020-12-08] VITALS: Ht 160 cm; Wt 72.6 kg
[~2020-12-08 12:42] MED LIST changes: -CATHETER FLUSH 10 ML SYR IV PRN
--- NOTE | 2020-12-08 12:57 | ED GI ---
General Stated Complaint: N/V Source of Information: Patient Exam Limitations: No Limitations History of Present Illness Date Seen by Provider: Dec 08, 2020 Time Seen by Provider: 12:54 Initial Comments To ER accompanied by with 48-hour history of nausea and vomiting. No diarrhea. Anytime she tries to eat or drink anything she begins vomiting. She has some right upper quadrant abdominal pain. Her only surgical history is of tonsillectomy. No fevers or chills. Her child was ill with nausea and vomiting for about 1 day but has subsequently recovered. is not ill. She is on Lamictal and Cymbalta and has been unable to take these for about 48 hours due to the nausea and vomiting. She denies any marijuana alcohol or other substance use. Timing/Duration: 1-2 Days Severity/Quality: Cramping Location: RUQ Radiation: No Radiation Activities at Onset: None Associated Symptoms: Nausea/Vomiting Allergies and Home Medications Allergies Coded Allergies: codeine (Verified Allergy, Intermediate, NAUSEA, 04/05/20) makes pt vomit Home Medications Duloxetine HCl 60 Mg Capsule.dr, 60 MG PO DAILY, (Reported) Lamotrigine 25 Mg Tb.chw.dsp, 75 MG PO DAILY, (Reported) Pantoprazole Sodium 40 Mg Tablet.dr, 40 MG PO DAILY Prescribed by: ARTEM DA SILVA on 04/12/20 1121 Promethazine HCl 25 Mg Tablet, 25 MG PO Q8H PRN for NAUSEA/VOMITING Prescribed by: TIMI BREWSTER on 12/08/20 1347 Patient Home Medication List Home Medication List Reviewed: Yes Review of Systems Review of Systems Constitutional: see HPI; No chills, No fever EENTM: No Symptoms Reported Respiratory: No Symptoms Reported Cardiovascular: No Symptoms Reported Gastrointestinal: See HPI, Abdominal Pain; Denies Diarrhea; Nausea, Vomiting Genitourinary: No Symptoms Reported Musculoskeletal: no symptoms reported Skin: no symptoms reported Psychiatric/Neurological: No Symptoms Reported Endocrine: No Symptoms Reported Hematologic/Lymphatic: No Symptoms Reported Past Hiimfvr-Yqclnz-Fcsglc Hx Patient Social History Type Used: Cigarettes Former Smoker, Quit: Dec 01, 2017 2nd Hand Smoke Exposure: Yes Recent Hopitalizations: No Immunizations Up To Date PED Vaccines UTD: Yes Seasonal Allergies Seasonal Allergies: No Past Medical History Surgeries: Yes (WISDOM TEETH) Adenoidectomy, Tonsillectomy Respiratory: No Cardiac: No Neurological: No Female Reproductive Disorders: Denies Sexually Transmitted Disease: No HIV/AIDS: No Genitourinary: Yes Kidney Stones Gastrointestinal: Yes (ABD PAIN) Gastroesophageal Reflux Musculoskeletal: No Endocrine: No HEENT: No Loss of Vision: Denies Hearing Impairment: Denies Cancer: No Psychosocial: Yes Anxiety, Depression Integumentary: No Blood Disorders: No Adverse Reaction/Blood Tranf: No (N/A) Family Medical History Abdominal aortic aneurysm 19 FATHER Arthritis G8 BROTHER Hypercholesterolemia 19 FATHER AAA Physical Exam Vital Signs Vital Signs - First Documented 12/08/20 12:46 Temp 37.7 Pulse 120 Resp 20 B/P (MAP) 133/62 (85) Capillary Refill : Height/Weight/BMI Height: 5'3.00" Weight: 192lbs. 0.6oz. 87.686617el; 24.15 BMI Method: General Appearance: WD/WN, no apparent distress Neck: non-tender, full range of motion Respiratory: lungs clear, normal breath sounds, no respiratory distress, no accessory muscle use Cardiovascular: no murmur, tachycardia (Rate of 119-122) Gastrointestinal: normal bowel sounds, soft, tenderness (Right upper quadrant) Extremities: normal range of motion, non-tender Neurologic/Psychiatric: alert, normal mood/affect, oriented x 3 Skin: normal color, warm/dry Progress/Results/Core Measures Results/Orders Lab Results Laboratory Tests Test 12/08/20 13:06 12/08/20 13:10 Range/Units White Blood Count 9.7 4.3-11.0 10^3/uL Red Blood Count 4.97 3.80-5.11 10^6/uL Hemoglobin 11.1 L 11.5-16.0 g/dL Hematocrit 38 35-52 % Mean Corpuscular Volume 76 L 80-99 fL Mean Corpuscular Hemoglobin 22 L 25-34 pg Mean Corpuscular Hemoglobin Concent 30 L 32-36 g/dL Red Cell Distribution Width 16.7 H 10.0-14.5 % Platelet Count 431 H 130-400 10^3/uL Mean Platelet Volume 9.1 9.0-12.2 fL Immature Granulocyte % (Auto) 0 % Neutrophils (%) (Auto) 90 H 42-75 % Lymphocytes (%) (Auto) 6 L 12-44 % Monocytes (%) (Auto) 3 0-12 % Eosinophils (%) (Auto) 0 0-10 % Basophils (%) (Auto) 0 0-10 % Neutrophils # (Auto) 8.7 H 1.8-7.8 10^3/uL Lymphocytes # (Auto) 0.6 L 1.0-4.0 10^3/uL Monocytes # (Auto) 0.3 0.0-1.0 10^3/uL Eosinophils # (Auto) 0.0 0.0-0.3 10^3/uL Basophils # (Auto) 0.0 0.0-0.1 10^3/uL Immature Granulocyte # (Auto) 0.0 0.0-0.1 10^3/uL Neutrophils % (Manual) 78 % Lymphocytes % (Manual) 11 % Monocytes % (Manual) 4 % Eosinophils % (Manual) 1 % Band Neutrophils 6 % Hypochromasia SLIGHT Anisocytosis SLIGHT Microcytosis SLIGHT Sodium Level 140 135-145 MMOL/L Potassium Level 4.1 3.6-5.0 MMOL/L Chloride Level 105 98-107 MMOL/L Carbon Dioxide Level 18 L 21-32 MMOL/L Anion Gap 17 H 5-14 MMOL/L Blood Urea Nitrogen 18 7-18 MG/DL Creatinine 0.66 0.60-1.30 MG/DL Estimat Glomerular Filtration Rate > 60 BUN/Creatinine Ratio 27 Glucose Level 106 H 70-105 MG/DL Calcium Level 9.2 8.5-10.1 MG/DL Corrected Calcium 8.5-10.1 MG/DL Total Bilirubin 0.4 0.1-1.0 MG/DL Aspartate Amino Transf (AST/SGOT) 21 5-34 U/L Alanine Aminotransferase (ALT/SGPT) 14 0-55 U/L Alkaline Phosphatase 68 40-136 U/L Total Protein 7.8 6.4-8.2 GM/DL Albumin 4.6 H 3.2-4.5 GM/DL Lipase 18 8-78 U/L Serum Test, Qualitative NEGATIVE NEGATIVE Urine Color YELLOW Urine Clarity CLEAR Urine pH 6.0 5-9 Urine Specific [place] >=1.030 1.016-1.022 Urine Protein NEGATIVE NEGATIVE Urine Glucose (UA) NEGATIVE NEGATIVE Urine Ketones 2+ H NEGATIVE Urine Nitrite NEGATIVE NEGATIVE Urine Bilirubin NEGATIVE NEGATIVE Urine Urobilinogen 0.2 < = 1.0 MG/DL Urine Leukocyte Esterase NEGATIVE NEGATIVE Urine RBC (Auto) 1+ H NEGATIVE Urine RBC 5-10 H /HPF Urine WBC 0-2 /HPF Urine Squamous Epithelial Cells 5-10 /HPF Urine Crystals PRESENT H /LPF Urine Amorphous Sediment LARGE [place] URATES H /LPF Urine Bacteria FEW H /HPF Urine Casts NONE /LPF Urine Mucus MODERATE H /LPF Urine Culture Indicated YES Urine Opiates Screen NEGATIVE NEGATIVE Urine Oxycodone Screen NEGATIVE NEGATIVE Urine Methadone Screen NEGATIVE NEGATIVE Urine Propoxyphene Screen NEGATIVE NEGATIVE Urine Barbiturates Screen NEGATIVE NEGATIVE Ur Tricyclic Antidepressants Screen NEGATIVE NEGATIVE Urine Phencyclidine Screen NEGATIVE NEGATIVE Urine Amphetamines Screen NEGATIVE NEGATIVE Urine Methamphetamines Screen NEGATIVE NEGATIVE Urine Benzodiazepines Screen NEGATIVE NEGATIVE Urine Cocaine Screen NEGATIVE NEGATIVE Urine Cannabinoids Screen NEGATIVE NEGATIVE My Orders Orders - TIMI BREWSTER [facility] Ua Culture If Indicated (12/08/20 12:44) Lipase (12/08/20 12:44) Hcg,Qualitative Serum (12/08/20 12:44) Cbc With Automated Diff (12/08/20 12:44) Comprehensive Metabolic Panel (12/08/20 12:44) Ed Iv/Invasive Line Start (12/08/20 12:44) Ns Iv 1000 Ml (Sodium Chloride 0.9%) (12/08/20 13:00) Ondansetron Injection (Zofran Injectio (12/08/20 13:00) Hyoscyamine Sl Tablet (Levsin Sl Tablet) (12/08/20 13:00) Us Gallbladder [address] (12/08/20 12:51) Diphenhydramine Injection (Benadryl Inje (12/08/20 13:15) Drug Screen Stat (Urine) (12/08/20 13:12) Manual Differential (12/08/20 13:06) Urine Culture (12/08/20 13:10) Prochlorperazine Injection (Compazine In (12/08/20 14:00) Ct Abdomen/Pelvis W (12/08/20 13:59) Iohexol Injection (Omnipaque 350 Mg/Ml 1 (12/08/20 14:15) Received Contrast (Hold Metformin- Contr (12/08/20 14:15) Sodium Chloride Flush (Catheter Flush Sy (12/08/20 14:15) Ns (Ivpb) (Sodium Chloride 0.9% Ivpb Bag (12/08/20 14:15) Medications Given in ED Current Medications Medications Dose Ordered Sig/Kiley Route Start Time Stop Time Status Last Admin Dose Admin Diphenhydramine HCl 25 mg ONCE ONCE IVP 12/08/20 13:15 12/08/20 13:16 DC 12/08/20 13:28 25 MG Hyoscyamine Sulfate 0.125 mg ONCE ONCE PO 12/08/20 13:00 12/08/20 13:01 DC 12/08/20 13:28 0.125 MG Iohexol 100 ml ONCE ONCE IV 12/08/20 14:15 12/08/20 14:16 DC 12/08/20 14:22 92 ML Ondansetron HCl 8 mg ONCE ONCE IVP 12/08/20 13:00 12/08/20 13:01 DC 12/08/20 13:27 8 MG Prochlorperazine Edisylate 5 mg ONCE ONCE IV 12/08/20 14:00 12/08/20 14:01 DC 12/08/20 14:30 5 MG Sodium Chloride 10 ml NEEDED PRN IV 12/08/20 14:15 12/08/20 14:22 10 ML Sodium Chloride 100 ml ONCE ONCE IV 12/08/20 14:15 12/08/20 14:16 DC 12/08/20 14:22 80 ML Vital Signs/I&O 12/08/20 12:46 Temp 37.7 Pulse 120 Resp 20 B/P (MAP) 133/62 (85) Diagnostic Imaging Diagonstic Imaging: CT Comments NAME: BISHNU PENA [facility] REC#: [id number] PT STATUS: REG ER : 1990 PHYSICIAN: TIMI BREWSTER [facility] ADMIT DATE: 12/08/20/ER Draft Date of Exam:12/08/20 CT ABDOMEN/PELVIS W PROCEDURE: CT abdomen and pelvis with contrast. TECHNIQUE: Multiple contiguous axial images were obtained through the abdomen and pelvis after administration of intravenous contrast. Auto Exposure Controls were utilized during the CT exam to meet ALARA standards for radiation dose reduction. All CT scans use one or more of the following dose optimizing techniques: automated exposure control, MA and/or KvP adjustment based on patient size and exam type or iterative reconstruction. INDICATION: Right-sided pain, nausea and vomiting. COMPARISON: Study of 08/26/2019. FINDINGS: No pericecal or right lower quadrant inflammatory changes are identified. While I cannot clearly visualize the appendix no findings of appendicitis are present. The urinary tract is nonfocal unobstructed and nonacute. No hepatobiliary abnormality. Spleen, adrenals and pancreas are negative. The aorta is nonaneurysmal. There is no ileus or bowel obstruction. The uterus, adnexa and urinary bladder are unremarkable. Lung bases and bony structures are unremarkable. IMPRESSION: No obstructive features, inflammatory process, stone disease or acute abnormalities identified. Dictated on workstation # [id number] Dict: 12/08/20 1443 Trans: 12/08/20 1448 [facility] [id number] Interpreted by: NORMA RODRIGUEZ Electronically signed by: Departure Communication (Admissions) 1400-nausea is better though she still has some right-sided abdominal pain. She has had about 1/2 L of fluids blood pressure 97/48, heart rate 102. We will let this bag of fluids finish infusing, obtain CT abdomen pelvis with contrast, give some Compazine 5 mg IV. Impression Primary Impression: Nausea & vomiting Qualified Codes: R11.2 - Nausea with vomiting, unspecified Disposition: HOME, SELF-CARE Condition: Improved Departure-Patient Inst. Decision time for Depature: 13:47 Referrals: NO,LOCAL PHYSICIAN (PCP/Family) Primary Care Physician Patient Instructions: Nausea and Vomiting, Adult Add. Discharge Instructions: Drink Plenty of fluids. Return to ER for any worsening. Follow-up with your doctor next week. Scripts Promethazine HCl (Promethazine Tablet) 25 Mg Tablet 25 MG PO Q8H PRN for NAUSEA/VOMITING, #10 TAB Prov: TIMI BREWSTER APRN 12/08/20 Work/School Note: Work Release Form Date Seen in the Emergency Department: Dec 08, 2020 Return to Work: Dec 10, 2020 TIMI BREWSTER APRN Dec 08, 2020 12:56
[2020-12-08] MEDS ORDERED: HYOSCYAMINE 0.125 MG (LEVSIN) TAB PO ONE (13:00)
[2020-12-08] MEDS ORDERED: ONDANSETRON 4 MG/2 ML (SDV) Z0FRAN IVP ONE (13:00)
[2020-12-08] MEDS ORDERED: NS IV 1000 ML 1,000 ML IV SCH (13:00)
[2020-12-08] MEDS ORDERED: diphenhydrAMINE 50 MG/ML INJ (BENADRYL) IVP ONE (13:15)
[2020-12-08 13:22] LABS: BILIRUBIN,URINE NEGATIVE (NEGATIVE); CLARITY,URINE CLEAR; COLOR,URINE YELLOW; GLUCOSE, URINE (UA) NEGATIVE (NEGATIVE); KETONES,URINE 2+ (NEGATIVE); LEUKOCYTE ESTERASE ,URINE NEGATIVE (NEGATIVE); NITRITE,URINE NEGATIVE (NEGATIVE); PROTEIN,URINE NEGATIVE (NEGATIVE)
[2020-12-08 13:27] LABS: ALBUMIN 4.6 GM/DL (3.2-4.5)
[2020-12-08 13:28] LABS: CHLORIDE 105 MMOL/L (98-107); POTASSIUM 4.1 MMOL/L (3.6-5.0); SODIUM 140 MMOL/L (135-145)
[2020-12-08 13:29] LABS: CALCIUM 9.2 MG/DL (8.5-10.1)
[2020-12-08 13:30] LABS: GLUCOSE 106 MG/DL (70-105); TOTAL PROTEIN 7.8 GM/DL (6.4-8.2)
[2020-12-08 13:31] LABS: CARBON DIOXIDE 18 MMOL/L (21-32)
[2020-12-08 13:32] LABS: BASOPHILS % (AUTO) 0 % (0-10); BILIRUBIN,TOTAL 0.4 MG/DL (0.1-1.0); EOSINOPHILS % (AUTO) 0 % (0-10); HEMATOCRIT 38 % (35-52); HEMOGLOBIN 11.1 g/dL (11.5-16.0); LYMPHOCYTES # (AUTO) 0.6 10^3/uL (1.0-4.0); LYMPHOCYTES % (AUTO) 6 % (12-44); MEAN CORPUSCULAR HEMOGLOBIN 22 pg (25-34); MEAN CORPUSCULAR HGB CONC 30 g/dL (32-36); MEAN CORPUSCULAR VOLUME 76 fL (80-99); MEAN PLATELET VOLUME 9.1 fL (9.0-12.2); MONOCYTES # (AUTO) 0.3 10^3/uL (0.0-1.0); MONOCYTES % (AUTO) 3 % (0-12); NEUTROPHILS # (AUTO) 8.7 10^3/uL (1.8-7.8); NEUTROPHILS % (AUTO) 90 % (42-75); PLATELET COUNT 431 10^3/uL (130-400); WHITE BLOOD COUNT 9.7 10^3/uL (4.3-11.0)
[2020-12-08 13:33] LABS: ALKALINE PHOSPHATASE 68 U/L (40-136)
[2020-12-08 13:34] LABS: CREATININE SERUM 0.66 MG/DL (0.60-1.30); GFR ESTIMATED > 60
[2020-12-08 13:35] LABS: BUN/CREATININE RATIO 27
[2020-12-08 13:37] LABS: ALANINE AMINOTRANSFERASE 14 U/L (0-55); LIPASE 18 U/L (8-78)
[2020-12-08 13:37] LABS: WBC,URINE 0-2 /HPF
[2020-12-08 13:38] LABS: AMORPHOUS SEDIMENT,UR LARGE AMOR URATES /LPF; BACTERIA,URINE FEW /HPF
[2020-12-08 13:39] LABS: AMPHETAMINE SCREEN, URINE NEGATIVE (NEGATIVE); BARBITURATE SCREEN URINE NEGATIVE (NEGATIVE); BENZODIAZEPINES SCREEN URINE NEGATIVE (NEGATIVE); CANNABINOID SCREEN, URINE NEGATIVE (NEGATIVE); COCAINE SCREEN URINE NEGATIVE (NEGATIVE); METHADONE STAT NEGATIVE (NEGATIVE); METHAMPHETAMINE SCREEN URINE S NEGATIVE (NEGATIVE); OPIATE SCREEN URINE NEGATIVE (NEGATIVE); OXYCODONE STAT NEGATIVE (NEGATIVE); PROPOXYPHENE STAT NEGATIVE (NEGATIVE); TRICYCLIC ANTIDEPRESSANTS SCRE NEGATIVE (NEGATIVE)
[2020-12-08 13:47] LABS: ANISOCYTOSIS SLIGHT; BAND NEUTROPHILS 6 %; EOSINOPHILS % (MANUAL) 1 %; HYPOCHROMASIA SLIGHT; LYMPHOCYTES % (MANUAL) 11 %; MICROCYTOSIS SLIGHT; MONOCYTES % (MANUAL) 4 %; NEUTROPHILS % (MANUAL) 78 %
[2020-12-08] MEDS ORDERED: PROM25TA14 PO (13:47)
[2020-12-08] MEDS ORDERED: PROCHLORPERAZINE 10 MG/2ML INJ (COMPAZINE) IV ONE (14:00)
--- NOTE | 2020-12-08 14:08 | Diagnostic Imaging Report ---
PROCEDURE: US Gallbladder. TECHNIQUE: Multiple Real-time grayscale images were obtained over the right upper quadrant in various projections. INDICATION: Right upper quadrant pain, nausea, and vomiting. COMPARISON: 04/06/2020. FINDINGS: The gallbladder appears normal. No wall thickening, sludge, or stone. The intra and extra hepatic bile ducts are nondilated. The liver parenchyma appears normal. The unobstructed right kidney is normal in size, cortical thickness, and echotexture. No ascites, abscess, hematoma, or acute fluid collection. The pancreas is largely obscured by overlying gas. IMPRESSION: No hepatobiliary abnormality. Negative right kidney. No change from the prior. Dictated by: Dictated on workstation # [id number]
[2020-12-08] MEDS ORDERED: CATHETER FLUSH 10 ML SYR IV PRN (14:15)
[2020-12-08] MEDS ORDERED: NS 100 ML (IVPB) BAG IV ONE (14:15)
[2020-12-08] MEDS ORDERED: HOLD METFORMIN - RECEIVED CONTRAST 20 ML VIAL IV SCH (14:15)
[2020-12-08] MEDS ORDERED: IOHEXOL 350 MG/ML 100 ML (OMNIPAQUE 350) VIAL IV ONE (14:15)
--- NOTE | 2020-12-08 14:49 | Diagnostic Imaging Report ---
PROCEDURE: CT abdomen and pelvis with contrast. TECHNIQUE: Multiple contiguous axial images were obtained through the abdomen and pelvis after administration of intravenous contrast. Auto Exposure Controls were utilized during the CT exam to meet ALARA standards for radiation dose reduction. All CT scans use one or more of the following dose optimizing techniques: automated exposure control, MA and/or KvP adjustment based on patient size and exam type or iterative reconstruction. INDICATION: Right-sided pain, nausea and vomiting. COMPARISON: Study of 08/26/2019. FINDINGS: No pericecal or right lower quadrant inflammatory changes are identified. While I cannot clearly visualize the appendix no findings of appendicitis are present. The urinary tract is nonfocal unobstructed and nonacute. No hepatobiliary abnormality. Spleen, adrenals and pancreas are negative. The aorta is nonaneurysmal. There is no ileus or bowel obstruction. The uterus, adnexa and urinary bladder are unremarkable. Lung bases and bony structures are unremarkable. IMPRESSION: No obstructive features, inflammatory process, stone disease or acute abnormalities identified. Dictated by: Dictated on workstation # [id number]
[2020-12-08] MEDS ORDERED: LACTATED RINGERS 1,000 ML IV SCH (15:15)
[2020-12-08 16:14] VITALS: BP 92/52
== END 2020-12-08 16:14 | disposition home or self-care (01) ==
LOC: EDUNIT# 12:42 → ER 12:44
DX: R11.2 Nausea with vomiting, unspecified (principal); R10.11 Right upper quadrant pain; R00.0 Tachycardia, unspecified; K21.9 Gastro-esophageal reflux disease without esophagitis; F41.9 Anxiety disorder, unspecified; F32.9 Major depressive disorder, single episode, unspecified; Z77.22 Contact with and (suspected) exposure to environmental tobacco smoke (acute) (chronic); Z88.5 Allergy status to narcotic agent; Z32.02 Encounter for pregnancy test, result negative
CPT/HCPCS: 36415; 74177; 76705; 80053; 80306; 81000; 83690; 84703; 85007; 85027; 87088

== ENCOUNTER 2021-07-05 15:42 | Emergency (ER) | payer MEDICAID ==
[~2021-07-05] VITALS: Ht 160 cm; Wt 72.6 kg
[~2021-07-05 15:42] MED LIST changes: -DULO60CA6 PO; +DULO60CA7 PO; +PROM25TA14 PO
[2021-07-05] MEDS ORDERED: ALPRAZolam 0.25 MG (XANAX) TAB PO ONE (16:00)
[2021-07-05 16:17] LABS: BASOPHILS % (AUTO) 0 % (0-10); EOSINOPHILS # (AUTO) 0.1 10^3/uL (0.0-0.3); EOSINOPHILS % (AUTO) 2 % (0-10); HEMATOCRIT 35 % (35-52); HEMOGLOBIN 10.8 g/dL (11.5-16.0); LYMPHOCYTES # (AUTO) 2.3 10^3/uL (1.0-4.0); LYMPHOCYTES % (AUTO) 34 % (12-44); MEAN CORPUSCULAR HEMOGLOBIN 23 pg (25-34); MEAN CORPUSCULAR HGB CONC 31 g/dL (32-36); MEAN CORPUSCULAR VOLUME 75 fL (80-99); MEAN PLATELET VOLUME 9.2 fL (9.0-12.2); MONOCYTES # (AUTO) 0.5 10^3/uL (0.0-1.0); MONOCYTES % (AUTO) 8 % (0-12); NEUTROPHILS # (AUTO) 3.7 10^3/uL (1.8-7.8); NEUTROPHILS % (AUTO) 56 % (42-75); PLATELET COUNT 495 10^3/uL (130-400); WHITE BLOOD COUNT 6.7 10^3/uL (4.3-11.0)
[2021-07-05 16:29] LABS: ALBUMIN 4.5 GM/DL (3.2-4.5); POTASSIUM 3.4 MMOL/L (3.6-5.0)
[2021-07-05 16:30] LABS: CALCIUM 9.8 MG/DL (8.5-10.1)
[2021-07-05 16:32] LABS: TOTAL PROTEIN 7.5 GM/DL (6.4-8.2)
[2021-07-05 16:33] LABS: BILIRUBIN,TOTAL 0.3 MG/DL (0.1-1.0)
[2021-07-05 16:35] LABS: CREATININE SERUM 0.68 MG/DL (0.60-1.30)
--- NOTE | 2021-07-05 16:52 | ED Psychosocial ---
General Chief Complaint: Psych/Social Disorder Stated Complaint: POSSIBLE SEIZURES Nursing Triage Note: has stopped her cymbalta and is having withdrawl. patient states she is 5 weeks and stoppped her cymbalta & lamictal on saturday. Source: patient Exam Limitations: no limitations (TIMI BREWSTER APRN) History of Present Illness Date Seen by Provider: Jul 05, 2021 Time Seen by Provider: 16:02 Initial Comments With reports that she stopped her Cymbalta and Lamictal on Saturday. She is 5 weeks and is stopping those medications for that reason. She was taking them for anxiety. She did a quick taper off of them but is having some sensations of electric shocks throughout her body, emotional lability including anxiety and depression. Timing/Duration: constant, getting worse Severity: moderate (TIMI BREWSTER APRN) Allergies and Home Medications Allergies Coded Allergies: codeine (Verified Allergy, Intermediate, NAUSEA, 04/05/20) makes pt vomit Patient Home Medication List Home Medication List Reviewed: Yes (TIMI BREWSTER APRN) Duloxetine HCl (Cymbalta) 60 Mg Capsule.dr, 60 MG PO DAILY, (Reported) Entered as Reported by: LUIS ANGEL GARCIA on 04/05/20 1354 Lamotrigine (Lamictal) 25 Mg Tb.chw.dsp, 75 MG PO DAILY, (Reported) Entered as Reported by: LUIS ANGEL GARCIA on 04/05/20 1354 Pantoprazole Sodium (Protonix) 40 Mg Tablet.dr, 40 MG PO DAILY Prescribed by: ARTEM DA SILVA on 04/12/20 1121 Promethazine HCl (Promethazine Tablet) 25 Mg Tablet, 25 MG PO Q8H PRN for NAUSEA/VOMITING Prescribed by: TIMI BREWSTER on 12/08/20 1347 Review of Systems Constitutional: see HPI EENTM: see HPI Respiratory: no symptoms reported Cardiovascular: no symptoms reported Genitourinary: no symptoms reported Musculoskeletal: see HPI Skin: no symptoms reported Psychiatric/Neurological: See HPI, Anxiety, Depressed, Paresthesia (TIMI BREWSTER APRN) Past Pylfjns-Gmillj-Qbahus Hx Immunizations Up To Date PED Vaccines UTD: Yes (TIMI BREWSTER APRN) Seasonal Allergies Seasonal Allergies: No (TIMI BREWSTER APRN) Past Medical History Surgeries: Yes (WISDOM TEETH) Adenoidectomy, Tonsillectomy Respiratory: No Cardiac: No Neurological: No Expected Date of Delivery: Mar 03, 2022 Last Menstrual Period: May 27, 2021 Female Reproductive Disorders: Denies Sexually Transmitted Disease: No HIV/AIDS: No Genitourinary: Yes Kidney Stones Gastrointestinal: Yes (ABD PAIN) Gastroesophageal Reflux, Ulcer Musculoskeletal: No Endocrine: No HEENT: No Loss of Vision: Denies Hearing Impairment: Denies Cancer: No Psychosocial: Yes Anxiety, Depression Integumentary: No Blood Disorders: No Adverse Reaction/Blood Tranf: No (N/A) (TIMI BREWSTER APRN) Family Medical History Abdominal aortic aneurysm 19 FATHER Arthritis G8 BROTHER Hypercholesterolemia 19 FATHER AAA (TIMI BREWSTER APRN) Physical Exam Vital Signs - First Documented 07/05/21 07/05/21 15:55 17:29 Temp 37.0 Pulse 101 Resp 18 B/P (MAP) 115/85 (95) Pulse Ox 99 O2 Delivery Room Air (DOMINIQUE,MELITON K DO) Capillary Refill : Less Than 3 Seconds (TIMI BREWSTER APRN) Height, Weight, BMI Height: 5'3.00" Weight: 192lbs. 0.6oz. 87.972321li; 28.00 BMI Method: General Appearance: WD/WN, no apparent distress, other (Anxious tearful) HEENT: PERRL/EOMI, normal ENT inspection Respiratory: normal breath sounds, no respiratory distress, no accessory muscle use Gastrointestinal: normal bowel sounds, non tender, soft Neurologic/Psychiatric: alert, normal mood/affect, oriented x 3 Appearance/Memory: appropriate appearance, appropriate insight, neat Behavior/Eye Contact: cooperative, good eye contact, normal speech Thoughts/Hallucinations: normal thought pattern, no apparent hallucination Skin: normal color, warm/dry (TIMI BREWSTER APRN) Progress/Results/Core Measures Results/Orders Blood Pressure Mean: 95 Departure Impression Primary Impression: Medication withdrawal Disposition: 01 HOME, SELF-CARE Condition: Stable Departure-Patient Inst. Decision time for Depature: 16:52 (TIMI BREWSTER APRN) Referrals: NO,LOCAL PHYSICIAN (PCP/Family) Primary Care Physician Patient Instructions: Prescription Drug Withdrawal (DC) Add. Discharge Instructions: 1. Use a Benadryl 1 tablet every 4-6 hours as needed for symptom reduction. Expect symptoms to last for 7 to 10 days. Return to ER for any concerns. All discharge instructions reviewed with patient and/or family. Voiced understanding. ATTENDING PHYSICIAN NOTE: I WAS PHYSICALLY PRESENT ER PHYSICIAN WHILE THIS PT WAS IN ER, BUT I WAS NOT INVOLVED IN ANY DECISION MAKING OR ANY CARE OF THIS PATIENT. (MELITON FOX DO) TIMI BREWSTER APRN Jul 05, 2021 16:52 MELITON FOX DO Jul 07, 2021 21:36
[2021-07-05 17:29] VITALS: BP 90/56
== END 2021-07-05 17:30 | disposition home or self-care (01) ==
LOC: EDUNIT# 15:42 → ER 15:44
DX: O99.321 Drug use complicating pregnancy, first trimester (principal); F41.9 Anxiety disorder, unspecified; F32.9 Major depressive disorder, single episode, unspecified; K21.9 Gastro-esophageal reflux disease without esophagitis; Z79.899 Other long term (current) drug therapy; Z3A.01 Less than 8 weeks gestation of pregnancy
CPT/HCPCS: 36415; 80053; 84702; 85025

== ENCOUNTER 2021-08-10 11:14 | Outpatient (CLI) | payer MEDICAID ==
[2021-08-10 11:11] VITALS: BP 105/58
[2021-08-10 11:24] VITALS: BP 105/58
[2021-08-10] MEDS ORDERED: ONDANSETRON 4 MG/2 ML (SDV) Z0FRAN IVP ONE (11:45)
[2021-08-10] MEDS: D5 LR IV SOLUTION 1,000 ML IV SCH ×2 (12:23→14:12)
[2021-08-10 15:47] VITALS: BP 96/52
== END 2021-08-10 16:00 | disposition home or self-care (01) ==
LOC: WSo 11:14 → LDRP 11:17 → WSo 16:00
PROVIDERS: ATTEND Obstetrics & Gynecology
DX: O21.9 Vomiting of pregnancy, unspecified (principal); Z3A.00 Weeks of gestation of pregnancy not specified
CPT/HCPCS: 96361; 96374; 99212

== ENCOUNTER 2021-09-30 03:41 | Emergency (ER) | payer MEDICAID ==
[~2021-09-30] VITALS: Ht 160 cm; Wt 78.0 kg
--- NOTE | 2021-09-30 04:09 | ED GI ---
General Chief Complaint: Abdominal/GI Problems Stated Complaint: 18 WKS PREG,ABD & BACK PAIN Nursing Triage Note: upper abdominal pain radiating to flank Source of Information: Patient History of Present Illness Date Seen by Provider: Sep 30, 2021 Time Seen by Provider: 03:55 Initial Comments PT ARRIVES VIA POV FROM HOME STATES AROUND 2100 TONIGHT, SHE BEGAN HAVING DIFFUSE ABDOMINAL PAIN, RADIATING TO BACK ON BOTH SIDES PAIN IS WORSE ALL ACROSS UPPER ABDOMEN ALSO HAS HAD NAUSEA AND VOMITING AND DRY HEAVES NO DIARRHEA NO URINARY SYMPTOMS NO FEVER PT IS 18 WEEKS . AB 0 MISSED SEPTEMBER OB APPOINTMENT, LAST VISIT WAS ABOUT 6 WEEKS AGO , AND NEXT VISIT IS 10/17/21--DR. WRIGHT IS ADVANCED PRACTICE PROVIDER PT STATES SHE HAS HAD NAUSEA AND VOMITING THROUGHOUT , BUT USUALLY DOES NOT HAVE PAIN TOOK 1 ZOFRAN AROUND MIDNIGHT, WITHOUT RELIEF TOOK 1 TYLENOL EARLIER, WITHOUT RELIEF. ATE PIZZA AROUND 1800 TONIGHT NO ONE ELSE IS ILL PT HAS NOT HAD ANY PRIOR GI PROBLEMS OR ABDOMINAL SURGERIES NO PRIOR SIMILAR PROBLEMS WITH PREVIOUS PREGNANCIES PT IS NOT VACCINATED AGAINST COVID-19 DENIES ANY KNOWN SICK CONTACTS. PT IS FORMER ALCOHOLIC AND METH ADDICT AND FORMER SMOKER--STATES SHE HAS NOT USED ANY OF THESE FOR 4 YEARS. 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 DR. WRIGHT Allergies and Home Medications Allergies Coded Allergies: codeine (Verified Allergy, Intermediate, NAUSEA, 04/05/20) makes pt vomit Patient Home Medication List Home Medication List Reviewed: Yes Doxylamine/Pyridoxine HCl (Tasha Mccracken 10-10 mg Tablet) 1 Each Tablet., 2 EACH PO HS Prescribed by: MELITON FOX on 09/30/21 0504 Ondansetron (Ondansetron Odt) 8 Mg Tab.rapdis, 8 MG PO Q6H Prescribed by: MELITON FOX on 09/30/21 050 Promethazine HCl (Promethazine Suppository) 25 Mg Supp.rect, 25 MG RC Q6H Prescribed by: MELITON FOX on 09/30/21 0504 Review of Systems Review of Systems Constitutional: no symptoms reported Respiratory: No Symptoms Reported Cardiovascular: No Symptoms Reported Gastrointestinal: See HPI, Abdominal Pain; Denies Constipated, Denies Diarrhea; Nausea, Vomiting Genitourinary: No Symptoms Reported Musculoskeletal: see HPI, back pain Skin: no symptoms reported Psychiatric/Neurological: No Symptoms Reported Endocrine: No Symptoms Reported Hematologic/Lymphatic: No Symptoms Reported Past Wqqskvw-Qwdglk-Lsowub Hx Patient Social History Tobacco Use?: Yes Tobacco type used: Cigarettes Smoking Status: Former Smoker Substance use?: Yes Substance type: Methamphetamine Alcohol Use?: Yes Pt feels they are or have been: No Immunizations Up To Date PED Vaccines UTD: Yes Seasonal Allergies Seasonal Allergies: No Past Medical History Surgeries: Yes (WISDOM TEETH) Adenoidectomy, Tonsillectomy Respiratory: No Cardiac: No Neurological: No : Yes Expected Date of Delivery: Feb 28, 2021 Last Menstrual Period: May 10, 2021 Hx : 3 Hx Para: 2 Hx Total # of Abortions (Sp): 0 Female Reproductive Disorders: Denies Sexually Transmitted Disease: No HIV/AIDS: No Genitourinary: Yes Kidney Stones Gastrointestinal: Yes (ABD PAIN) Gastroesophageal Reflux, Ulcer Musculoskeletal: No Endocrine: No HEENT: No Loss of Vision: Denies Hearing Impairment: Denies Cancer: No Psychosocial: Yes Anxiety, Depression Integumentary: No Blood Disorders: No Adverse Reaction/Blood Tranf: No (N/A) Family Medical History Abdominal aortic aneurysm 19 FATHER Arthritis G8 BROTHER Hypercholesterolemia 19 FATHER AAA SOCIAL HISTORY: -SMOKED 1 PPD, QUIT 2018 -HISTORY OF ETOH ABUSE, QUIT 2018 -HISTORY OF METH USE, QUIT 2018. DENIES IV USE. Physical Exam Vital Signs Vital Signs - First Documented 09/30/21 03:48 Temp 36.3 Pulse 116 Resp 18 B/P (MAP) 121/53 (75) Pulse Ox 99 O2 Delivery Room Air Capillary Refill : Less Than 3 Seconds Height/Weight/BMI Height: 5'3.00" Weight: 192lbs. 0.6oz. 87.190896dr; 30.00 BMI Method: General Appearance: other (VERY DRAMATIC, VERY HARSH FORCED RETCHING/DRY HEAVES, WITH SMALL AMOUNT OF CLEAR EMESIS. ) HEENT: PERRL/EOMI Respiratory: normal breath sounds, no respiratory distress, no accessory muscle use Cardiovascular: regular rate, rhythm, no murmur Gastrointestinal: normal bowel sounds, soft; No distended, No guarding, No rebound; tenderness (DIFFUSE ABDOMINAL TENDERNESS AND BILATERAL MID AND LOWER BACK TENDERNESS. GRAVID UTERUS, 2 FB'S BELOW UMBILICUS. FHR 155. 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 ) Progress/Results/Core Measures Results/Orders Lab Results Laboratory Tests Test 09/30/21 04:13 09/30/21 04:18 09/30/21 04:21 Range/Units White Blood Count 10.4 4.3-11.0 10^3/uL Red Blood Count 4.61 3.80-5.11 10^6/uL Hemoglobin 12.8 11.5-16.0 g/dL Hematocrit 39 35-52 % Mean Corpuscular Volume 84 80-99 fL Mean Corpuscular Hemoglobin 28 25-34 pg Mean Corpuscular Hemoglobin Concent 33 32-36 g/dL Red Cell Distribution Width 18.7 H 10.0-14.5 % Platelet Count 323 130-400 10^3/uL Mean Platelet Volume 8.9 L 9.0-12.2 fL Immature Granulocyte % (Auto) 0 % Neutrophils (%) (Auto) 75 42-75 % Lymphocytes (%) (Auto) 19 12-44 % Monocytes (%) (Auto) 4 0-12 % Eosinophils (%) (Auto) 2 0-10 % Basophils (%) (Auto) 0 0-10 % Neutrophils # (Auto) 7.7 1.8-7.8 10^3/uL Lymphocytes # (Auto) 1.9 1.0-4.0 10^3/uL Monocytes # (Auto) 0.5 0.0-1.0 10^3/uL Eosinophils # (Auto) 0.2 0.0-0.3 10^3/uL Basophils # (Auto) 0.0 0.0-0.1 10^3/uL Immature Granulocyte # (Auto) 0.0 0.0-0.1 10^3/uL Sodium Level 137 135-145 MMOL/L Potassium Level 3.3 L 3.6-5.0 MMOL/L Chloride Level 105 98-107 MMOL/L Carbon Dioxide Level 20 L 21-32 MMOL/L Anion Gap 12 5-14 MMOL/L Blood Urea Nitrogen 11 7-18 MG/DL Creatinine 0.61 0.60-1.30 MG/DL Estimat Glomerular Filtration Rate 123 BUN/Creatinine Ratio 18 Glucose Level 105 70-105 MG/DL Calcium Level 8.8 8.5-10.1 MG/DL Corrected Calcium 9.0 8.5-10.1 MG/DL Total Bilirubin 0.3 0.1-1.0 MG/DL Aspartate Amino Transf (AST/SGOT) 12 5-34 U/L Alanine Aminotransferase (ALT/SGPT) 9 0-55 U/L Alkaline Phosphatase 61 40-136 U/L Total Protein 7.1 6.4-8.2 GM/DL Albumin 3.8 3.2-4.5 GM/DL Amylase Level 58 25-125 U/L Lipase 14 8-78 U/L Serum Alcohol < 10 <10 MG/DL Urine Color YELLOW Urine Clarity SL CLOUDY Urine pH 8.5 5-9 Urine Specific Dowell 1.015 L 1.016-1.022 Urine Protein NEGATIVE NEGATIVE Urine Glucose (UA) NEGATIVE NEGATIVE Urine Ketones TRACE H NEGATIVE Urine Nitrite NEGATIVE NEGATIVE Urine Bilirubin NEGATIVE NEGATIVE Urine Urobilinogen 0.2 < = 1.0 MG/DL Urine Leukocyte Esterase 1+ H NEGATIVE Urine RBC (Auto) NEGATIVE NEGATIVE Urine RBC NONE /HPF Urine WBC 0-2 /HPF Urine Squamous Epithelial Cells 25-50 H /HPF Urine Crystals NONE /LPF Urine Bacteria TRACE /HPF Urine Casts NONE /LPF Urine Mucus NEGATIVE /LPF Urine Culture Indicated NO Urine Opiates Screen NEGATIVE NEGATIVE Urine Oxycodone Screen NEGATIVE NEGATIVE Urine Methadone Screen NEGATIVE NEGATIVE Urine Propoxyphene Screen NEGATIVE NEGATIVE Urine Barbiturates Screen NEGATIVE NEGATIVE Ur Tricyclic Antidepressants Screen NEGATIVE NEGATIVE Urine Phencyclidine Screen NEGATIVE NEGATIVE Urine Amphetamines Screen NEGATIVE NEGATIVE Urine Methamphetamines Screen NEGATIVE NEGATIVE Urine Benzodiazepines Screen NEGATIVE NEGATIVE Urine Cocaine Screen NEGATIVE NEGATIVE Urine Cannabinoids Screen NEGATIVE NEGATIVE Influenza Type A (RT-PCR) Not Detected Not Detecte Influenza Type B (RT-PCR) Not Detected Not Detecte SARS-CoV-2 RNA (RT-PCR) Not Detected Not Detecte My Orders Orders - MELITON FOX DO Ed Iv/Invasive Line Start (09/30/21 04:00) Amylase (09/30/21 04:00) Cbc With Automated Diff (09/30/21 04:00) Comprehensive Metabolic Panel (09/30/21 04:00) Lipase (09/30/21 04:00) Ua Culture If Indicated (09/30/21 04:00) Heart Tones (09/30/21 04:01) Ondansetron Injection (Zofran Injectio (09/30/21 04:15) Ed Iv/Invasive Line Start (09/30/21 04:07) Lactated Ringers (Lr 1000 Ml Iv Solution (09/30/21 04:15) Alcohol (09/30/21 04:07) Drug Screen Stat (Urine) (09/30/21 04:07) Covid 19 Inhouse Test (09/30/21 04:08) Influenza A And B By Pcr (09/30/21 04:08) Isolation Central Supply Req (09/30/21 04:08) Medications Given in ED Current Medications Medications Dose Ordered Sig/Kiley Route Start Time Stop Time Status Last Admin Dose Admin Lactated Ringer's 1,000 ml @ 0 mls/hr Q0M ONCE IV 09/30/21 04:15 09/30/21 04:16 DC 09/30/21 04:20 0 MLS/HR Ondansetron HCl 8 mg ONCE ONCE IVP 09/30/21 04:15 09/30/21 04:16 DC 09/30/21 04:18 8 MG Vital Signs/I&O 09/30/21 09/30/21 03:48 05:09 Temp 36.3 36.4 Pulse 116 86 Resp 18 18 B/P (MAP) 121/53 (75) 119/67 Pulse Ox 99 100 O2 Delivery Room Air Room Air Blood Pressure Mean: 75 Progress Progress Note : Progress Note GIVEN IV FLUIDS AND ZOFRAN WITH MUCH IMPROVEMENT IN ABDOMINAL AND BACK PAIN AND NAUSEA NO FURTHER VOMITING/DRY HEAVES Departure Impression Primary Impression: Nausea & vomiting Additional Impressions: Epigastric abdominal pain 18 weeks gestation of Disposition: 01 HOME, SELF-CARE Condition: Improved Departure-Patient Inst. Decision time for Depature: 05:00 Referrals: NO,LOCAL PHYSICIAN (PCP) Primary Care Physician TIRNIDAD WRIGHT MD (Family) Primary Care Physician Patient Instructions: Nausea and Vomiting of , Stomach Pain Later in , Stomach Pain in Early Add. Discharge Instructions: CLEAR LIQUIDS, SIPS AT A TIME--WATER, BROTH, JELLO, GATORADE WHEN YOUR PAIN AND NAUSEA ARE BETTER, ADD BRATS DIET TO CLEAR LIQUIDS--BANANAS, RICE, APPLESAUCE, TOAST, SALTINES TYLENOL 1 GRAM 4 TIMES A DAY NEEDED FOR PAIN FOLLOW UP WITH DR. WRIGHT ON SATURDAY IF NO BETTER, RETURN TO ER IF WORSE All discharge instructions reviewed with patient and/or family. Voiced understanding. Scripts Doxylamine/Pyridoxine HCl (Tasha Mccracken 10-10 mg Tablet) 1 Each Tablet.dr 2 EACH PO HS, #60 TAB Prov: MELITON FOX DO 09/30/21 Promethazine HCl (Promethazine Suppository) 25 Mg Supp.rect 25 MG RC Q6H, #10 SUPP.RECT Prov: MELITON FOX DO 09/30/21 Ondansetron (Ondansetron Odt) 8 Mg Tab.rapdis 8 MG PO Q6H, #10 TAB Prov: MELITON FOX DO 09/30/21 Work/School Note: Work Release Form Date Seen in the Emergency Department: Sep 30, 2021 Return to Work: Oct 01, 2021 Restrictions: No Restrictions MELITON FOX DO Sep 30, 2021 04:09
[2021-09-30] MEDS ORDERED: ONDANSETRON 4 MG/2 ML (SDV) Z0FRAN IVP ONE (04:15)
[2021-09-30] MEDS ORDERED: LACTATED RINGERS 1,000 ML IV ONE (04:15)
[2021-09-30 04:24] LABS: BASOPHILS % (AUTO) 0 % (0-10); EOSINOPHILS # (AUTO) 0.2 10^3/uL (0.0-0.3); EOSINOPHILS % (AUTO) 2 % (0-10); HEMATOCRIT 39 % (35-52); HEMOGLOBIN 12.8 g/dL (11.5-16.0); LYMPHOCYTES # (AUTO) 1.9 10^3/uL (1.0-4.0); LYMPHOCYTES % (AUTO) 19 % (12-44); MEAN CORPUSCULAR HEMOGLOBIN 28 pg (25-34); MEAN CORPUSCULAR HGB CONC 33 g/dL (32-36); MEAN CORPUSCULAR VOLUME 84 fL (80-99); MEAN PLATELET VOLUME 8.9 fL (9.0-12.2); MONOCYTES # (AUTO) 0.5 10^3/uL (0.0-1.0); MONOCYTES % (AUTO) 4 % (0-12); NEUTROPHILS # (AUTO) 7.7 10^3/uL (1.8-7.8); NEUTROPHILS % (AUTO) 75 % (42-75); PLATELET COUNT 323 10^3/uL (130-400); WHITE BLOOD COUNT 10.4 10^3/uL (4.3-11.0)
[2021-09-30 04:31] LABS: BILIRUBIN,URINE NEGATIVE (NEGATIVE); CLARITY,URINE SL CLOUDY; COLOR,URINE YELLOW; GLUCOSE, URINE (UA) NEGATIVE (NEGATIVE); KETONES,URINE TRACE (NEGATIVE); LEUKOCYTE ESTERASE ,URINE 1+ (NEGATIVE); NITRITE,URINE NEGATIVE (NEGATIVE); PH,URINE 8.5 (5-9); PROTEIN,URINE NEGATIVE (NEGATIVE)
[2021-09-30 04:35] LABS: BACTERIA,URINE TRACE /HPF; SQUAMOUS EPITHELIAL CELL,UR 25-50 /HPF; WBC,URINE 0-2 /HPF
[2021-09-30 04:36] LABS: ALBUMIN 3.8 GM/DL (3.2-4.5); CHLORIDE 105 MMOL/L (98-107); POTASSIUM 3.3 MMOL/L (3.6-5.0); SODIUM 137 MMOL/L (135-145)
[2021-09-30 04:37] LABS: AMYLASE 58 U/L (25-125); CALCIUM 8.8 MG/DL (8.5-10.1)
[2021-09-30 04:39] LABS: AMPHETAMINE SCREEN, URINE NEGATIVE (NEGATIVE); BARBITURATE SCREEN URINE NEGATIVE (NEGATIVE); BENZODIAZEPINES SCREEN URINE NEGATIVE (NEGATIVE); CANNABINOID SCREEN, URINE NEGATIVE (NEGATIVE); COCAINE SCREEN URINE NEGATIVE (NEGATIVE); METHADONE STAT NEGATIVE (NEGATIVE); METHAMPHETAMINE SCREEN URINE S NEGATIVE (NEGATIVE); OPIATE SCREEN URINE NEGATIVE (NEGATIVE); OXYCODONE STAT NEGATIVE (NEGATIVE); PROPOXYPHENE STAT NEGATIVE (NEGATIVE); TRICYCLIC ANTIDEPRESSANTS SCRE NEGATIVE (NEGATIVE)
[2021-09-30 04:39] LABS: GLUCOSE 105 MG/DL (70-105); TOTAL PROTEIN 7.1 GM/DL (6.4-8.2)
[2021-09-30 04:40] LABS: BILIRUBIN,TOTAL 0.3 MG/DL (0.1-1.0); CARBON DIOXIDE 20 MMOL/L (21-32)
[2021-09-30 04:42] LABS: ALKALINE PHOSPHATASE 61 U/L (40-136); CREATININE SERUM 0.61 MG/DL (0.60-1.30); GFR ESTIMATED 123
[2021-09-30 04:43] LABS: BUN/CREATININE RATIO 18
[2021-09-30 04:45] LABS: ALANINE AMINOTRANSFERASE 9 U/L (0-55)
[2021-09-30 04:46] LABS: LIPASE 14 U/L (8-78)
[2021-09-30] MEDS ORDERED: PROM25SU44 RC (05:04)
[2021-09-30] MEDS ORDERED: ONDA8TAB13 PO (05:04)
[2021-09-30] MEDS ORDERED: DOXY1TAB3 PO (05:04)
[2021-09-30 05:09] VITALS: BP 119/67
== END 2021-09-30 05:12 | disposition home or self-care (01) ==
LOC: EDUNIT# 03:41 → ER 03:45
DX: O21.0 Mild hyperemesis gravidarum (principal); O26.892 Other specified pregnancy related conditions, second trimester; R10.13 Epigastric pain; Z3A.18 18 weeks gestation of pregnancy; Z87.891 Personal history of nicotine dependence; Z20.822 Contact with and (suspected) exposure to COVID-19
CPT/HCPCS: 80053; 80306; 81000; 82150; 83690; 85025; 87636; 99284; G0480; 36415; 80320

== ENCOUNTER 2022-02-08 14:15 | Outpatient (CLI) | payer MEDICAID ==
[~2022-02-08] VITALS: Ht 160 cm; Wt 89.0 kg
[~2022-02-08 14:15] MED LIST changes: +DOXY1TAB3 PO; +ONDA8TAB13 PO; +PROM25SU44 RC
[2022-02-08 14:38] VITALS: BP 107/68
[2022-02-08 14:41] LABS: BILIRUBIN,URINE NEGATIVE (NEGATIVE); CLARITY,URINE CLEAR; COLOR,URINE YELLOW; GLUCOSE, URINE (UA) NEGATIVE (NEGATIVE); KETONES,URINE NEGATIVE (NEGATIVE); LEUKOCYTE ESTERASE ,URINE NEGATIVE (NEGATIVE); NITRITE,URINE NEGATIVE (NEGATIVE); PROTEIN,URINE NEGATIVE (NEGATIVE)
[2022-02-08 14:48] LABS: BACTERIA,URINE TRACE /HPF
[2022-02-08] MEDS ORDERED: D5 LR IV SOLUTION 1,000 ML IV SCH (15:30)
[2022-02-08] MEDS ORDERED: D5 LR IV SOLUTION 1,000 ML IV ONE (15:33)
--- NOTE | 2022-02-09 08:26 | Physician Query-Final Dx ---
MIKAYLA,02/09/22 0826: Clinic Account Progress/Dx Physician Query: Please give diagnosis Please complete # weeks gestation Date of Service Feb 08, 2022 at 14:15 TRINIDAD WRIGHT MD 02/13/22 1909: Clinic Account Progress/Dx DIAGNOSIS: Diagnosis Headache at 36 weeks gestation ,SepFeb 09, 2022 08:26 TRINIDAD WRIGHT MD Feb 13, 2022 19:09
== END 2022-02-08 16:40 | disposition home or self-care (01) ==
LOC: WSo 14:15 → LDRP 14:16 → WSo 16:40
PROVIDERS: ATTEND Obstetrics & Gynecology
DX: Z34.90 Encounter for supervision of normal pregnancy, unspecified, unspecified trimester (principal)
CPT/HCPCS: 81000; 96360; 99213

== ENCOUNTER 2022-02-21 07:03 | Inpatient (IN) | payer MEDICAID ==
[~2022-02-21] VITALS: Ht 160 cm; Wt 89.9 kg
[2022-02-21] VITALS (10 sets, daily range): BP systolic 82–143; BP diastolic 48–109
[2022-02-21] MEDS ORDERED: LACTATED RINGERS 1,000 ML IV ONE (08:12)
[2022-02-21] MEDS ORDERED: OXYTOCIN PRE-MIX DRIP 500 ML IV ONE (08:12)
[2022-02-21] MEDS ORDERED: D5 LR IV SOLUTION 1,000 ML IV ONE (08:12)
--- NOTE | 2022-02-21 08:25 | History & Physical ---
History and Physical Date Seen by Provider: Feb 21, 2022 Time Seen by Provider: 08:23 This patient is a 32-year-old 3 para 2 female currently at 38-5/7 weeks gestation. She is admitted now for induction of labor due to progressive oligohydramnios. She denies rupture membranes or bleeding. She has had no other problems with this . Her GBS culture was negative. Allergies codeine Medications are vitamins Medical social and surgical histories are per the antepartum record HEENT exam is normal Neck is supple no lymphadenopathy no thyromegaly Abdomen is gravid soft nontender nondistended Extremities show no clubbing or cyanosis. There is no Homans' sign. Pelvic exam shows a cervix 2 to 3 cm dilated 50% effaced -1 station. Posterior very soft with a vertex presentati Laboratory Tests Test 02/21/22 07:38 Range/Units Work is pending Assessment and plan 38-5/7 weeks gestation with oligohydramnios admitted for induction of labor. We anticipate a vaginal delivery 38-5/7 weeks gestation with oligohydramnios Allergies and Home Medications Allergies Coded Allergies: codeine (Verified Allergy, Intermediate, NAUSEA, 04/05/20) makes pt vomit Patient Home Medication List Home Medication List Reviewed: Yes No Active Prescriptions or Reported Meds TRINIDAD WRIGHT MD Feb 21, 2022 08:25
--- NOTE | 2022-02-21 08:26 | Discharge Inst-Surgical ---
Discharge Inst-Surgical Depart Medication/Instructions New, Converted or Re-Newed RX: Transmitted to Pharmacy Consults/Follow Up Patient Instructions: As directed Orders & Referrals Follow Up Appt: Call to make follow up appt. for patient in 4 weeks. Activity Per routine post vaginal delivery instructions. Discharge medication prescriptions have been sent to patient's pharmacy from my office and include Percocet Motrin and Colace Diet as tolerated Patient may shower or tub bathe as desired. Activity Activity as Tolerated: No Diet Discharge Diet: No Restrictions TRINIDAD WRIGHT MD Feb 21, 2022 08:26
[2022-02-21 08:30] LABS: BASOPHILS % (AUTO) 0 % (0-10); EOSINOPHILS # (AUTO) 0.1 10^3/uL (0.0-0.3); EOSINOPHILS % (AUTO) 1 % (0-10); HEMATOCRIT 38 % (35-52); HEMOGLOBIN 12.8 g/dL (11.5-16.0); LYMPHOCYTES # (AUTO) 2.5 10^3/uL (1.0-4.0); LYMPHOCYTES % (AUTO) 24 % (12-44); MEAN CORPUSCULAR HEMOGLOBIN 31 pg (25-34); MEAN CORPUSCULAR HGB CONC 34 g/dL (32-36); MEAN CORPUSCULAR VOLUME 91 fL (80-99); MEAN PLATELET VOLUME 9.8 fL (9.0-12.2); MONOCYTES # (AUTO) 0.6 10^3/uL (0.0-1.0); MONOCYTES % (AUTO) 6 % (0-12); NEUTROPHILS # (AUTO) 7.1 10^3/uL (1.8-7.8); NEUTROPHILS % (AUTO) 68 % (42-75); PLATELET COUNT 302 10^3/uL (130-400); WHITE BLOOD COUNT 10.4 10^3/uL (4.3-11.0)
[2022-02-21] MEDS ORDERED: OXYTOCIN PRE-MIX DRIP 500 ML IV SCH ×2 (08:30→17:45)
[2022-02-21] MEDS ORDERED: fentaNYL 2 mcg/ml BUPIVA 0.125 100 ML ONE (08:43)
[2022-02-21] MEDS: D5 LR IV SOLUTION 1,000 ML IV SCH ×2 (08:52→14:14)
[2022-02-21] MEDS ORDERED: fentaNYL 2 mcg/ml BUPIVA 0.125 100 ML EPI PRN (09:45)
[2022-02-21] MEDS ORDERED: diphenhydrAMINE 50 MG/ML INJ (BENADRYL) IV PRN (09:45)
[2022-02-21] MEDS ORDERED: ONDANSETRON 4 MG/2 ML (SDV) Z0FRAN IV PRN (09:45)
[2022-02-21] MEDS ORDERED: LACTATED RINGERS 1,000 ML IV SCH (09:45)
[2022-02-21] MEDS ORDERED: EPIDURAL (fentaNYL 2 MCG/ML BUPIVA 0.125%)100 ML BAG EPI SCH (09:45)
[2022-02-21] MEDS ORDERED: NALOXONE 0.4 MG/ML 1 ML (NARCAN) VIAL IV PRN ×3 (09:45→17:45)
[2022-02-21] MEDS ORDERED: METOCLOPRAMIDE INJ 10 MG/2 ML (REGLAN) IV PRN (09:45)
[2022-02-21] MEDS ORDERED: ACETAMINOPHEN 500 MG TAB (TYLENOL) ONE (09:51)
[2022-02-21] MEDS: ACETAMINOPHEN 500 MG TAB (TYLENOL) PO PRN (09:52)
[2022-02-21] MEDS ORDERED: OMEP20TA33 PO (10:27)
[2022-02-21] MEDS ORDERED: PREN-37 PO (10:27)
[2022-02-21] MEDS ORDERED: DOXY25TA35 PO (10:28)
[2022-02-21] MEDS ORDERED: LIDOCAINE 1% INJ 20 ML VIAL ONE (15:52)
[2022-02-21] MEDS ORDERED: TETANUS,DIPTH,PERTUSS P/F (BOOSTRIX) 0.5 ML VIAL IM ONE (17:45)
[2022-02-21] MEDS ORDERED: ONDANSETRON 4 MG/2 ML (SDV) Z0FRAN IVP PRN (17:45)
[2022-02-21] MEDS ORDERED: BENZOCAINE/MENTHOL (DERMOPLAST) 56 ML CAN TP PRN (17:45)
[2022-02-21] MEDS ORDERED: oxyCODONE/APAP 5/325MG (PERCOCET 5) TABLET PO PRN (17:45)
[2022-02-21] MEDS: KETOROLAC 30 MG/ML VIAL IVP SCH (18:30)
[2022-02-22] MEDS: DOCUSATE SODIUM 100 MG (COLACE) CAP PO SCH ×2 (00:36→09:15)
[2022-02-22] MEDS: KETOROLAC 30 MG/ML VIAL IVP SCH ×2 (00:36→05:36)
[2022-02-22 00:40] VITALS: BP 111/57
[2022-02-22 05:37] VITALS: BP 97/53
--- NOTE | 2022-02-22 05:46 | OPERATIVE REPORT ---
DATE OF SERVICE: 02/21/2022 DELIVERY NOTE The patient delivered by term spontaneous vaginal delivery a viable female infant with Apgars of 8 and 9 at 1 and 5 minutes respectively, weight of 7 pounds 12 ounces. time of 1625 and cord blood pH was 7.26. The infant was delivered over an intact perineum under epidural analgesia. The was bulb suctioned on delivery of the head and again on completion of delivery. Umbilical cord was doubly clamped, father cut the cord, the baby was passed to mom's abdomen. The placenta delivered fairly promptly spontaneously Zendejas. It was normal with 3-vessel cord. Placenta was sent to pathology for permanent section. The cervix, vagina, rectum, and perineum were examined and found intact, except for a couple superficial minor abrasions, nothing that would constitute a laceration and did ___NOT__ require repair. Sponge and needle counts were correct on completion of delivery. Blood loss was around 300 mL. The patient tolerated the delivery well and remained in the LDR for recovery. The baby remained with the mom. Job ID: [id number] DocumentID: [id number] Dictated Date: 02/21/2022 18:36:54 Tunnel Kiln Repairer Date: 02/22/2022 05:45:15 Dictated By: TRINIDAD WRIGHT MD MTDD
--- NOTE | 2022-02-22 08:22 | Progress Note ---
Standard Progress Note Progress Notes/Assess & Plan Date Seen by a Provider: Feb 22, 2022 Time Seen by a Provider: 08:21 Progress/Assessment & Plan This patient is without complaint. She is ambulating, voiding, tolerating oral intake well has good pain control. Vital Signs Date Time Temp Pulse Resp B/P (MAP) Pulse Ox O2 Delivery O2 Flow Rate FiO2 02/22/22 05:37 36.8 65 18 97/53 (68) 98 Room Air 02/22/22 00:40 36.4 65 18 111/57 (75) 97 Room Air 02/21/22 18:27 36.3 02/21/22 18:17 104 18 107/60 (76) Room Air 02/21/22 18:02 75 18 98/59 (72) Room Air 02/21/22 17:47 85 18 87/61 (70) Room Air 02/21/22 17:32 82 18 82/48 (59) Room Air 02/21/22 17:18 122 18 126/74 (91) Room Air 02/21/22 17:02 143/109 (120) 02/21/22 16:32 36.3 79 18 88/48 (61) Room Air 02/21/22 15:49 64 18 111/66 (81) 100 Room Air 02/21/22 15:44 35.3 02/21/22 15:23 35.3 02/21/22 14:37 35.3 02/21/22 13:32 36.3 02/21/22 12:53 36.4 02/21/22 12:03 65 18 93/56 (68) 100 Room Air 02/21/22 11:46 36.3 02/21/22 09:52 36.1 I & O 02/22/22 07:00 Intake Total 2000 ml Balance 2000 ml Vital signs are stable. Patient is afebrile. Fundus is firm below the umbilicus and nontender. Extremities show no clubbing cyanosis. There is no Homans' sign. Pelvic exam was deferred Assessment and plan day 1 doing well plan is for routine convalescent care with discharge home as needed patient request Final Diagnosis 38-week spontaneous vaginal delivery TRINIDAD WRIGHT MD Feb 22, 2022 08:22
[2022-02-22 08:45] VITALS: BP 98/53
[2022-02-22] MEDS: ACETAMINOPHEN 500 MG TAB (TYLENOL) PO PRN ×2 (09:15→17:57)
--- NOTE | 2022-02-22 10:05 | Anesthesia-Regional Post-Op ---
Regional Patient Condition Mental Status: Alert, Oriented x3 Circulation: Same as Pre-Op Headache: Absent Sensation: Full Recovery Motor Block: Absent Post Op Complications Complications None Follow Up Care/Instructions Patient Instructions None needed. Anesthesia/Patient Condition Patient is doing well, no complaints, stable vital signs, no apparent adverse anesthesia problems. No complications reported per nursing. ANURADHA ALVARADO CRNA Feb 22, 2022 10:05
[2022-02-22 12:25] VITALS: BP 106/60
[2022-02-22] MEDS: IBUPROFEN 800 MG (MOTRIN) TAB PO SCH ×2 (12:27→17:56)
[2022-02-22 17:58] VITALS: BP 102/57
[2022-02-22] MEDS ORDERED: IBUPROFEN 800 MG (MOTRIN) TAB PO SCH (18:00)
[2022-02-22 19:15] VITALS: BP 102/57
== END 2022-02-22 19:15 | disposition home or self-care (01) | DRG 807 ==
LOC: LDRP 07:03
PROVIDERS: ADMIT Obstetrics & Gynecology; ATTEND Obstetrics & Gynecology
PROC: 10E0XZZ Delivery of Products of Conception, External Approach (ICD-10-PCS; principal; 2022-02-21)
PROC: 3E033VJ Introduction of Other Hormone into Peripheral Vein, Percutaneous Approach (ICD-10-PCS; 2022-02-21)
DX: O41.03X0 Oligohydramnios, third trimester, not applicable or unspecified (principal); Z37.0 Single live birth; Z3A.38 38 weeks gestation of pregnancy; Z28.310 Unvaccinated for COVID-19
CPT/HCPCS: 36415; 85025; 86850; 86900; 86901